=== PATIENT | female | born 1930 | race Caucasian/White ===

== ENCOUNTER 2016-09-13 08:01 | Inpatient (IN) | payer OTHER, MEDICARE ==
[~2016-09-13] VITALS: Ht 162.6 cm; Wt 78.0 kg
[~2016-09-13 08:01] MED LIST: ALTACE10 M1 PO; AMLODIPINE BES2.5 MG PO; DRISDOL50000 IU PO; FUROSEMIDE20 MG PO; LASIX20 MG PO; METOPROLOL SUC200 MG PO
[2016-09-13 08:55] LABS: ABSOLUTE BASOPHIL COUNT 0 /CUMM (0.0-0.2); ABSOLUTE EOSINOPHIL COUNT 0.1 /CUMM (0.0-0.7); ABSOLUTE GRANULOCYTE CT 5.6 /CUMM (1.4-6.5); ABSOLUTE LYMPH COUNT 0.8 /CUMM (1.2-3.4); ABSOLUTE MONOCYTE COUNT 0.7 /CUMM (0.10-0.60); BASOPHIL % 0.5 % (0.0-2.0); EOSINOPHIL % 0.8 % (0-5); HEMATOCRIT 36.4 % (37-47); MEAN CORPUSCULAR HGB 30.2 PG (27.0-31.0); MEAN CORPUSCULAR HGB CONC 33.9 G/DL (33.0-37.0); MEAN PLATELET VOLUME 8.1 FL (7.4-10.4); PLATELET COUNT 279 /CUMM (130-400); RBC DISTRIBUTION WIDTH 15.3 % (11.5-14.5); RED BLOOD CELL CT 4.09 /CUMM (4.20-5.40); WHITE BLOOD CELL COUNT 7.2 /CUMM (4.8-10.8)
--- NOTE | 2016-09-13 09:01 | ED GI/GU/ABDOMINAL COMPLAINT ---
History of Present Illness General Chief Complaint: General Adult Stated Complaint: BRB IN STOOL, ON COUMADIN Source: patient, old records, EMS Exam Limitations: dementia Vital Signs & Intake/Output Vital Signs & Intake/Output Vital Signs Date Time Temp Pulse Resp B/P B/P Pulse O2 O2 Flow FiO2 Mean Ox Delivery Rate 09/13 1353 Room Air Room Air / 1349 97.6 64 18 122/71 100 05/06 1328 106/58 05/06 1301 66 18 142/62 100 05/06 1229 97.5 66 15 114/68 97 Room Air Room Air 05/ 1136 60 15 128/60 97 Room Air Room Air 05/ 1046 52 15 119/58 100 Room Air Room Air 05/06 1016 97.1 53 15 114/53 100 Room Air Room Air / 0957 52 15 118/56 100 Room Air Room Air /06 0934 Room Air Room Air / 0855 65 15 98/52 98 Room Air Room Air /06 0831 97.1 67 15 110/71 98 Room Air Room Air Allergies Coded Allergies: No Known Allergies (09/13/16) Reconcile Medications Amlodipine Besylate 2.5 MG TABLET 1 TAB PO DAILY BP (Reported) Aspirin (Children's Aspirin) 81 MG TAB 1 TAB PO DAILY heart (Reported) ERGOCALCIFEROL (VITAMIN D2) (Drisdol) 50,000 IU SGL 50,000 IU PO QMON VIT D SUPPLEMENT Furosemide 20 MG TABLET 2 TAB PO QAM water pill (Reported) Metoprolol Succinate 200 MG TAB.ER.24H 1 TAB PO DAILY BP (Reported) Ramipril (Altace) 10 MG CAPSULE 1 CAP PO BID BP (Reported) Warfarin Sodium (Coumadin) 3 MG TABLET 1 TAB PO DAILY BLOOD THINNER (Reported ) START FROM 04/19/15 Triage Note: PT BIBA FROM [facility] FOR BRIGHT RED BLOOD IN STOOL. PT REPORTS SMALL AMOUNT OF BLOOD IN STOOL YESTERDAY AND PER EMS, MODERATE AMOUNT OF BRB IN TOILET ON ARRIVAL WITH CLOTS NOTED. PT DENIES ABD PAIN, NAUSEA, VOMITING, SOB, DIZZINESS. APPEARS TO BE IN NO DISTRESS. VSS. +BRB IN BEDPAN ON ARRIVAL WITH SMALL CLOTS AND BLOOD NOTED AROUND RECTUM. Triage Nurses Notes Reviewed? yes LMP (ages 10-50): post menopausal ? n Is pt currently ? No Onset: yesterday Duration: day(s):, continues in ED Timing: recent history Quality/Severity: painless bleeding Location: rectal Radiation: no radiation Activities at Onset: none Prior Abdominal Problems: none Past Sexual History: Unobtainable at this time No Modifying Factors: none HPI: 1 day prior to admission patient passed blood in her diaper. Prior to admission she had increased bleeding in her diaper. She denies fever chills nausea vomiting diarrhea abdominal pain chest pain shortness of breath headache dysuria rash. Past History Travel History Traveled to [place] past 21 day No Medical History Any Pertinent Medical History? 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 No Review of Systems Review of Systems Constitutional: Reports: no symptoms. EENTM: Reports: no symptoms. Respiratory: Reports: no symptoms. Cardiovascular: Reports: no symptoms. GI: Reports: see HPI, bloody stool, changes in stool. Genitourinary: Reports: no symptoms. Musculoskeletal: Reports: no symptoms. Skin: Reports: no symptoms. Neurological/Psychological: Reports: no symptoms. Hematologic/Endocrine: Reports: no symptoms. Immunologic/Allergic: Reports: no symptoms. All Other Systems: Reviewed and Negative Physical Exam Physical Exam General Appearance: well developed/nourished, alert, awake, comfortable, obese Head: atraumatic, normal appearance Eyes: Bilateral: normal appearance, PERRL, EOMI. Ears, Nose, Throat, Mouth: hearing grossly normal, moist mucous membrane Neck: normal inspection, supple, full range of motion, normal alignment Respiratory: normal breath sounds, chest non-tender, no respiratory distress, quiet respiration, lungs clear Cardiovascular: normal peripheral pulses, irregularly irregular, norml femoral pulses equa Peripheral Pulses: 4+ carotid (R), 4+ carotid (L) Gastrointestinal: normal bowel sounds, soft, non-tender, no organomegaly Rectal: bloody stool Back: normal inspection, normal range of motion Extremities: normal range of motion, no ligament instability Neurologic/Psych: no motor/sensory deficits, awake, alert, normal 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 No Severe Sepsis Present: No Septic Shock Present: No Progress Differential Diagnosis: gastritis, GI bleeding Plan of Care: Orders Procedure Date/time Status BASIC ELECTROLYTES PLUS BUN&CR 09/14 0600 Active PROTHROMBIN TIME 09/14 0400 Active CBC WITHOUT DIFFERENTIAL 09/14 0400 Active Full Liquid Diet 09/13 L Complete Nothing by Mouth 09/13 D Active CBC WITHOUT DIFFERENTIAL 09/13 2200 Active CBC WITHOUT DIFFERENTIAL 09/13 1400 Active PT Evaluate & Treat 09/13 1217 Active Pathway - chart 09/13 1217 Active Patient Data 09/13 1152 Active Admit to inpatient 09/13 1141 Active Santos, Insertion/Removal/Asses 09/13 0943 Active CULTURE,URINE 09/13 0943 Active Intake & Output 09/13 0936 Active PROTHROMBIN TIME 09/13 0830 Complete MAGNESIUM 09/13 0830 Complete COMPREHENSIVE METABOLIC PANEL 09/13 0830 Complete CBC WITHOUT DIFFERENTIAL 09/13 0830 Complete EKG 09/13 0830 Active TYPE & SCREEN (NOT X-MATCH) 09/13 0830 Complete VTE Mechanical Prophylaxis 09/13 UNK Active Current Medications Sig/Chuy Start time Last Medication Dose Stop Time Status Admin Furosemide 40 MG QAM 09/14 1000 UNVr (Lasix) Lisinopril 10 MG DAILY 09/14 1000 UNVr (Prinivil) Metoprolol Succinate 200 MG DAILY 09/14 1000 UNVr (Toprol Xl) Sodium Chloride 1,000 ML Q13H 09/13 1400 UNVr 09/13 (Normal Saline 0.9%) 1408 Laboratory Tests 09/13/16 1351: CBC w Diff Pending, WBC Pending, RBC Pending, Hgb Pending, Hct Pending, MCV Pending, MCH Pending, RDW Pending, Plt Count Pending, MPV Pending, PUBS MCHC Pending 09/13/16 0835: Anion Gap 12, Estimated GFR 59 L, BUN/Creatinine Ratio 35.6 H, Glucose 108 H, Calcium 8.9, Magnesium 2.0, Total Bilirubin 0.6, AST 20, ALT 32, Alkaline Phosphatase 72, Total Protein 6.6, Albumin 3.7, Globulin 2.9, Albumin/Globulin Ratio 1.3, PT 22.9 H, INR 2.20 H, CBC w Diff NO MAN DIFF REQ, RBC 4.09 L, MCV 89.0, MCH 30.2, RDW 15.3 H, MPV 8.1, Gran % 78.0 H, Lymphocytes % 11.2 L, Monocytes % 9.5 H, Eosinophils % 0.8, Basophils % 0.5, Absolute Granulocytes 5.6, Absolute Lymphocytes 0.8 L, Absolute Monocytes 0.7 H, Absolute Eosinophils 0.1, Absolute Basophils 0, PUBS MCHC 33.9 Microbiology 09/13 1000 URINE ROUT: Urine Culture - RECD Initial ED EKG: AFIB, no ST T wave changes Prior EKG: unchanged Rhythm Strip: atrial fibrillation Comments: Discussed with GI ICU for possible colonoscopy Departure Departure Disposition: STILL A PATIENT Condition: Stable Clinical Impression Primary Impression: Lower GI bleeding Secondary Impressions: Atrial fibrillation with controlled ventricular response Referrals: ALAN RITCHIE,JUDIE Escalante (PCP/Family) Departure Forms: Customer Survey General Discharge Information Admission Note Spoke With: LUCIEN PICKERING MD Documentation of Exam: Documentation of any treatments & extenuating circumstances including Concerns Regarding Discharge (functional status, medication knowledge or non-compliance, living conditions, etc.) that warrant an admission rather than observation: ICU monitoring serial lab exam GI evaluation medication adjustment continuing care discharge planning
[2016-09-13 09:07] LABS: PT 22.9 SEC (9.4-12.5)
--- NOTE | 2016-09-13 10:04 | RADIOLOGY REPORT ---
EXAMINATION: XR PORTABLE CHEST CLINICAL INFORMATION: Gastrointestinal bleed. COMPARISON: CT chest and chest x-ray of 04/15/2015 TECHNIQUE: Portable frontal view of the chest was obtained. FINDINGS: The cardiomediastinal silhouette is stable with mild cardiomegaly and mildly ectatic aorta with scattered aortic wall calcifications. The lungs are mildly hypoexpanded. No focal consolidation, changes of congestion or pleural effusions. No pneumothorax. Mild degenerative changes are noted at the right acromioclavicular joint. IMPRESSION: No acute pulmonary process. No significant interval change is noted compared to previous study.
--- NOTE | 2016-09-13 11:30 | Cons- Gastroenterology ---
General Information and HPI Consulting Request Date of Consult: 09/13/16 Requested By: Fransisca Medina MD Reason for Consult: Bright red blood per rectum. Change in bowel habits. Source of Information: patient Exam Limitations: no limitations History of Present Illness: Ms. Coleman is a 86-year-old female with a history of colon cancer s/p left sided hemicolectomy many years ago on Coumadin for atrial fibrillation who presented to [facility] early this morning with complaints of bright blood per rectum. The patient notes that last night she passed a scant amount of bright red blood which she did not pay much attention to and then this morning when she woke she had a bowel movement where she passed a large amount of blood with clots. She denies any black tarry stool. The bleeding was not associated with any abdominal pain and she is also without any complaints of abdominal pain with eating, nausea, vomiting, heartburn, dysphagia or hematemesis. The patient does not recall having similar episodes like this in the past, however her daughter notes that this episode seems to be similar to one 4 years ago when she had rectal bleeding and a colonoscopy was performed at that time which showed diverticulosis but no evidence of colon cancer recurrence and there was also no active bleeding by the time the colonoscopy was performed. Since arrival to the emergency room the patient has been hemodynamically stable and she has not had any further rectal bleeding. She denies any chest pain, shortness of breath, or lightheadedness. Allergies/Medications Allergies: Coded Allergies: No Known Allergies (09/13/16) Home Med List: Amlodipine Besylate 2.5 MG TABLET 1 TAB PO DAILY BP (Reported) Aspirin (Children's Aspirin) 81 MG TAB.CHEW 81 MG PO DAILY Atrial fibrillation (Reported) Please do not take until 09/24/16 Resume when no further GI bleed ERGOCALCIFEROL (VITAMIN D2) (Drisdol) 50,000 IU SGL 50,000 IU PO QMON VIT D SUPPLEMENT Furosemide 20 MG TABLET 2 TAB PO QAM water pill (Reported) Metoprolol Succinate 200 MG TAB.ER.24H 1 TAB PO DAILY BP (Reported) Omeprazole 20 MG CAPSULE.DR 40 MG PO DAILY AC GI bleed Ramipril (Altace) 10 MG CAPSULE 1 CAP PO BID BP (Reported) Current Medications: Current Medications Sig/Chuy Start time Last Medication Dose Route Stop Time Status Admin Sodium Chloride 500 ML BOLUS ONE 09/13 1015 DC 05/06 IV 05/06 1114 1005 Sodium Chloride 1,000 ML BOLUS ONE 09/13 0945 DC 05/06 IV 05/ 1044 1000 Past History Travel History Traveled to [place] past 21 day No Medical History Neurological: CVA EENT: NONE Cardiovascular: IRREGULAR HEART RATE Respiratory: NONE Gastrointestinal: NONE Hepatic: NONE Renal: NONE Musculoskeletal: NONE Psychiatric: NONE Endocrine: NONE Blood Disorders: NONE Cancer(s): colon/rectal cancer, non-hodgkin lymphoma 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 Needs Assist: toileting, bathing. Ambulation: cane IADLs Needs Assist: shopping, housework, finances. Review of Systems Review of Systems Constitutional: Denies: diaphoresis, fever, malaise, weakness. EENTM: Denies: no symptoms. Cardiovascular: Denies: no symptoms. Respiratory: Denies: no symptoms. GI: Reports: see HPI. Genitourinary: Denies: no symptoms. Musculoskeletal: Denies: no symptoms. Skin: Denies: no symptoms. Neurological/Psychological: Denies: no symptoms. Hematologic/Endocrine: Reports: bleeding. Immunologic/Allergic: Denies: no symptoms. All Other Systems: Reviewed and Negative Exam & Diagnostic Data Vital Signs and I&O Vital Signs Date Time Temp Pulse Resp B/P B/P Pulse O2 O2 Flow FiO2 Mean Ox Delivery Rate 09/13 1046 52 15 119/58 100 Room Air Room Air 09/13 1016 97.1 53 15 114/53 100 Room Air Room Air 09/13 0957 52 15 118/56 100 Room Air Room Air 09/13 0934 Room Air Room Air 09/13 0855 65 15 98/52 98 Room Air Room Air 09/13 0831 97.1 67 15 110/71 98 Room Air Room Air Intake & Output 09/13 0400 09/12 0400 09/11 1600 09/11 0400 Intake Total 0 Output Total Balance 0 Intake, Oral 0 Patient 170 lb Weight Weight Reported by Patient Measurement Method Physical Exam General Appearance: well developed/nourished, no apparent distress, alert, awake , comfortable Head: atraumatic, normal appearance Eyes: Bilateral: normal appearance. Ears, Nose, Throat: normal pharynx, normal ENT inspection Neck: normal inspection, supple, full range of motion Respiratory: normal breath sounds, chest non-tender Cardiovascular: irregularly irregular Gastrointestinal: normal bowel sounds, soft, non-tender, no organomegaly Rectal: deferred Back: normal inspection, normal range of motion Extremities: normal inspection, normal capillary refill, normal range of motion, no edema Neurologic/Psych: no motor/sensory deficits, awake, alert, oriented x 3 Skin: intact, normal color, warm/dry Results Pertinent Lab Results: Laboratory Tests 09/13 0835 Chemistry Sodium (137 - 145 mmol/L) 140 Potassium (3.5 - 5.1 mmol/L) 4.8 Chloride (98 - 107 mmol/L) 100 Carbon Dioxide (22 - 30 mmol/L) 28 Anion Gap (5 - 16) 12 BUN (7 - 17 mg/dL) 32 H Creatinine (0.5 - 1.0 mg/dL) 0.9 Estimated GFR (>60 ml/min) 59 L BUN/Creatinine Ratio (7 - 25 %) 35.6 H Glucose (65 - 99 mg/dL) 108 H Calcium (8.4 - 10.2 mg/dL) 8.9 Magnesium (1.6 - 2.3 mg/dL) 2.0 Total Bilirubin (0.2 - 1.3 mg/dL) 0.6 AST (14 - 36 U/L) 20 ALT (9 - 52 U/L) 32 Alkaline Phosphatase (<127 U/L) 72 Total Protein (6.3 - 8.2 g/dL) 6.6 Albumin (3.5 - 5.0 g/dL) 3.7 Globulin (1.9 - 4.2 gm/dL) 2.9 Albumin/Globulin Ratio (1.1 - 2.2 %) 1.3 Coagulation PT (9.4 - 12.5 SEC) 22.9 H INR (0.90 - 1.19) 2.20 H Hematology CBC w Diff NO MAN DIFF REQ WBC (4.8 - 10.8 /CUMM) 7.2 RBC (4.20 - 5.40 /CUMM) 4.09 L Hgb (12.0 - 16.0 G/DL) 12.3 Hct (37 - 47 %) 36.4 L MCV (81.0 - 99.0 FL) 89.0 MCH (27.0 - 31.0 PG) 30.2 RDW (11.5 - 14.5 %) 15.3 H Plt Count (130 - 400 /CUMM) 279 MPV (7.4 - 10.4 FL) 8.1 Gran % (42.2 - 75.2 %) 78.0 H Lymphocytes % (20.5 - 51.1 %) 11.2 L Monocytes % (1.7 - 9.3 %) 9.5 H Eosinophils % (0 - 5 %) 0.8 Basophils % (0.0 - 2.0 %) 0.5 Absolute Granulocytes (1.4 - 6.5 /CUMM) 5.6 Absolute Lymphocytes (1.2 - 3.4 /CUMM) 0.8 L Absolute Monocytes (0.10 - 0.60 /CUMM) 0.7 H Absolute Eosinophils (0.0 - 0.7 /CUMM) 0.1 Absolute Basophils (0.0 - 0.2 /CUMM) 0 PUBS MCHC (33.0 - 37.0 G/DL) 33.9 Assessment/Plan Assessment/Recommendations: Assessment: Ms. Coleman is an 86 year old female with a remote history of colon cancer and diverticulosis on coumadin for atrial fibrillation who presents with painless rectal bleeding which is quite likely secondary to a diverticular bleed and exacerbated by her anticoagulation. She had a similar admission in 2013 at which point she underwent a colonoscopy that was negative for a recurrence of her colon cancer, but did show diverticulosis. Her bleeding resolved with temporarily holding her coumadin then and I am hopeful that will be the case here and a repeat colonoscopy can be avoided. She is currently hemodynamically stable, has not had a significant fall in her hgb and hasn't had any further rectal bleeding since she has arrived to the ER so a repeat colonoscopy, if it does need to be performed, isn't urgent. Hopefully her bleeding will stop with holding her coumadin and/or reversing her INR and a repeat colonoscopy won't be necessary, but in case it is would recommend admitting her to the ICU over the weekend. Recommendations: 1. Admit to the ICU for close monitoring and in case endoscopic intervention is necessary over the weekend. 2. Follow CBC q8hr and transfuse as needed to keep hgb > 8 3. Hold coumadin for now 4. Follow INR and if bleeding persists would reverse her INR with vit k and FFP , but this isn't necessary if the bleeding doesn't recur 5. Maintain 2 large bore IVs at all times 6. Notify GI for hemodynamically significant bleeding and if her bleeding continues in spite of holding the coumadin and reversing her INR will then plan to prep for a colonoscopy. 7. Keep on full liquid diet for now with nothing red. I will continue to follow this patient and make further recommendations based on her clinical course and repeat blood work. Problem List: 1. AFIB ON COUMADIN 2. GI bleed Copies To: ALAN RITCHIE,JUDIE Escalante Consult Acknowledgment - Thank you for your consult request.
--- NOTE | 2016-09-13 11:58 | History & Physical ---
PRITI OWEN 09/13/16 1158: General Information and HPI MD Statement: I have seen and personally examined BARBARA PAIGE and documented this H&P. The patient is a 86 year old F who presented with a patient stated chief complaint of [bright red blood per rectum ]. Source of Information: patient Exam Limitations: no limitations History of Present Illness: Patient is 85-year-old female with past medical history of colonic cancer, lymphoma treated with chemotherapy and radiation, TIA, hypertension, known case of atrial fibrillation on Coumadin and was brought in to [facility] by EMS from [facility] after patient had an episode of bright red blood per rectum yesterday and this morning. Patient said that this morning, her stools were very bloody. Patient has history of colon cancer that was treated 30 years ago and she never had any similar complain since then. Patient denies any belly pain, nausa or vomiting. Her apetitie has been good. Patients daughter notes that this episode seems to be similar to one 4 years ago when she had rectal bleeding and a colonoscopy was performed that time which showed diverticulosis but no evidence of colon cancer recurrence. ROS is negative for any chest pain, difficulty breathing, dizziness, lightheadedness, urinary complains etc. Patient says her daughter Dara Paige ([phone]) helps her with her decision making regarding important matters. Allergies/Medications Allergies: Coded Allergies: No Known Allergies (09/13/16) Compliance With Home Meds: GOOD Past History Travel History Traveled to [place] past 21 day No Medical History Neurological: CVA EENT: NONE Cardiovascular: IRREGULAR HEART RATE Respiratory: NONE Gastrointestinal: NONE Hepatic: NONE Renal: NONE Musculoskeletal: NONE Psychiatric: NONE Endocrine: NONE Blood Disorders: NONE Cancer(s): colon/rectal cancer, non-hodgkin lymphoma CAMPAIGN MANAGEMENT SPECIALIST/Reproductive: NONE History of MRSA: No History of VRE: No History of CDIFF: No Surgical History Surgical History: cholecystectomy, hernia repair-inguinal, hysterectomy, colon surgery Past Family/Social History Psychosocial History Where do you live? Assisted Living Services at Home: None Functional Ability ADLs Independent: dressing, eating. Needs Assist: toileting, bathing. Ambulation: cane IADLs Needs Assist: shopping, housework, finances. Sexual History Past Sexual History Unobtainable at this time Review of Systems Review of Systems Constitutional: Reports: see HPI. Cardiovascular: Reports: no symptoms. Respiratory: Reports: no symptoms. GI: Reports: no symptoms. Genitourinary: Reports: no symptoms. Musculoskeletal: Reports: no symptoms. Skin: Reports: no symptoms. Exam & Diagnostic Data Last 24 Hrs of Vital Signs/I&O Vital Signs Date Time Temp Pulse Resp B/P B/P Pulse O2 O2 Flow FiO2 Mean Ox Delivery Rate 09/13 1136 60 15 128/60 97 Room Air Room Air 09/13 1046 52 15 119/58 100 Room Air Room Air 09/13 1016 97.1 53 15 114/53 100 Room Air Room Air 09/13 0957 52 15 118/56 100 Room Air Room Air 09/13 0934 Room Air Room Air 09/13 0855 65 15 98/52 98 Room Air Room Air 09/13 0831 97.1 67 15 110/71 98 Room Air Room Air Intake & Output 09/13 1600 09/13 0800 05/ 0000 Intake Total 0 Output Total Balance 0 Intake, Oral 0 Patient 77.111 kg Weight Weight Reported by Patient Measurement Method Physical Exam General Appearance Alert, Oriented X3, Cooperative, No Acute Distress Skin No Rashes, No Breakdown Skin Temp/Moisture Exam: Warm/Dry Sepsis Skin Exam (color): Normal for Ethnicity HEENT Atraumatic Neck Supple Cardiovascular Regular Rate, Normal S1, Normal S2 Lungs Clear to Auscultation, Normal Air Movement Abdomen Normal Bowel Sounds, Soft, No Tenderness Neurological Normal Tone Extremities No Edema Last 24 Hrs of Labs/Zev: Laboratory Tests 09/13/16 0835: Anion Gap 12, Estimated GFR 59 L, BUN/Creatinine Ratio 35.6 H, Glucose 108 H, Calcium 8.9, Magnesium 2.0, Total Bilirubin 0.6, AST 20, ALT 32, Alkaline Phosphatase 72, Total Protein 6.6, Albumin 3.7, Globulin 2.9, Albumin/Globulin Ratio 1.3, PT 22.9 H, INR 2.20 H, CBC w Diff NO MAN DIFF REQ, RBC 4.09 L, MCV 89.0, MCH 30.2, RDW 15.3 H, MPV 8.1, Gran % 78.0 H, Lymphocytes % 11.2 L, Monocytes % 9.5 H, Eosinophils % 0.8, Basophils % 0.5, Absolute Granulocytes 5.6, Absolute Lymphocytes 0.8 L, Absolute Monocytes 0.7 H, Absolute Eosinophils 0.1, Absolute Basophils 0, PUBS MCHC 33.9 Microbiology 09/13 1000 URINE ROUT: Urine Culture - RECD Assessment/Plan Assessment: Patient is 85-year-old female with past medical history of colonic cancer, lymphoma treated with chemotherapy and radiation, TIA, hypertension, known case of atrial fibrillation on Coumadin and was brought in to [facility] by EMS from [facility] after patient had an episode of bright red blood per rectum yesterday and this morning. Patient said that this morning, her stools were very bloody. Patient has history of colon cancer that was treated 30 years ago and she never had any similar complain since then. Patient denies any belly pain, nausa or vomiting. Her apetitie has been good. Labs and Vitals as above EKG: atrial fibrillation with 66 HR, QTC 453, no ST changes CXR: No acute pulmonary process. No significant interval change is noted compared to previous study. Assessment and Plan Patient has 2 episodes of lower GI bleed, her Hemogolbin is stable. Will monitor her in ICU with CBC q8 to monitor for acute drop in hemoglobin and transfuse if necessary to keep HB > 8. GI consult service Dr. Quintana on board. Patient might need urgent endoscopic intervention if she continues to bleed. Will hold warfarin and monitor INR daily. ALPS for DVT ppx no anticoagulation as patient is bleeding. Patient is full code. Core Measures/Miscellaneous Acute Coronary Syndrome ACS Diagnosis: No Cerebrovascular Accident CVA/TIA Diagnosis: No Congestive Heart Failure CHF Diagnosis: No Venous Thromboembolism VTE Risk Factors: Age > 40 [facility] prophylaxis d/t: No contraindications No VTE Pharm Prophylaxis d/t: No contraindications VTE Diagnosis: No VTE Type: NONE VTE Confirmed by (Test): NONE Severe Sepsis Severe Sepsis Present: No Septic Shock Septic Shock Present: No Miscellaneous Documentation Attending Case Discussed With: Trae Primary Care Physician: JUDIE PHILLIPS MD Patient sees these Specialists luis Level of Patient Care: Critical Care (CRI) LUCIEN PICKERING MD 09/13/16 2014: General Information and HPI Allergies/Medications Home Med list Amlodipine Besylate 2.5 MG TABLET 1 TAB PO DAILY BP (Reported) Aspirin (Children's Aspirin) 81 MG TAB.CHEW 81 MG PO DAILY Atrial fibrillation (Reported) Please do not take until 09/24/16 Resume when no further GI bleed ERGOCALCIFEROL (VITAMIN D2) (Drisdol) 50,000 IU SGL 50,000 IU PO QMON VIT D SUPPLEMENT Furosemide 20 MG TABLET 2 TAB PO QAM water pill (Reported) Metoprolol Succinate 200 MG TAB.ER.24H 1 TAB PO DAILY BP (Reported) Omeprazole 20 MG CAPSULE.DR 40 MG PO DAILY AC GI bleed Ramipril (Altace) 10 MG CAPSULE 1 CAP PO BID BP (Reported) Assessment/Plan As Ranked By This Provider Problem List: 1. Lower GI bleeding 2. Atrial fibrillation with controlled ventricular response Attending MD Review Statement Attending Statement Attending MD Statement: examined this patient, discuss w/resident/PA/POND SCALER, agreed w/resident/PA/POND SCALER, reviewed EMR data (avail) Attending Assessment/Plan: 86F PMH colon cancer 30 years ago, lymphoma treated with chemotherapy and radiation, TIA, hypertension, paroxysmal atrial fibrillation on Coumadin brought from care home facility with bright red blood per rectum with clots. Normal BM until today. Denies abdominal pain, diarrhea, constipation, rectal pain, or symptoms of anemia. Hgb 12 on admission, 10.7 on repeat. Hemodynamically stable, exam benign. 1. Lower GI bleed 2. Acute blood loss anemia 3. History of colon cancer 4. Paroxysmal atrial fibrillation Plan - Admit to ICU - Monitor CBC q8h - Transfuse Hgb<8 - GI consult - Protonix 40mg IV daily - Continue Coumadin for now, if continues to bleed, then will reverse with FFP - Continue home medications - NPO for possible GI procedure
[2016-09-13 14:12] LABS: ABSOLUTE BASOPHIL COUNT 0 /CUMM (0.0-0.2); ABSOLUTE EOSINOPHIL COUNT 0.1 /CUMM (0.0-0.7); ABSOLUTE GRANULOCYTE CT 6.3 /CUMM (1.4-6.5); ABSOLUTE LYMPH COUNT 1.3 /CUMM (1.2-3.4); ABSOLUTE MONOCYTE COUNT 0.8 /CUMM (0.10-0.60); BASOPHIL % 0.4 % (0.0-2.0); EOSINOPHIL % 1.1 % (0-5); GRANULOCYTE % 73.2 % (42.2-75.2); HEMATOCRIT 32.3 % (37-47); MEAN CORPUSCULAR HGB 29.5 PG (27.0-31.0); MEAN CORPUSCULAR VOLUME 89.4 FL (81.0-99.0); MEAN PLATELET VOLUME 8.1 FL (7.4-10.4); PLATELET COUNT 277 /CUMM (130-400); RBC DISTRIBUTION WIDTH 15.4 % (11.5-14.5); RED BLOOD CELL CT 3.62 /CUMM (4.20-5.40); WHITE BLOOD CELL COUNT 8.6 /CUMM (4.8-10.8)
[2016-09-13 16:06] VITALS: BP 118/64
--- NOTE | 2016-09-13 20:20 | Admission Certification ---
Admission Certification Certification Statement - As attending physician, I certify that at the time of - admission, based on clinical presentation, severity of - symptoms, need for further diagnostic testing and - therapeutic interventions, and risk of adverse outcomes - without in-hospital treatment, in my clinical assessment, - this patient requires an acute hospital stay for a minimum - of two nights or longer. I have also considered psychsocial - factors such as support system, advanced age, financial - issues, cognitive issues, and failed out-patient treatments, - past re-admission history, safety of patient, and lack of - compliance as applicable. Specific rationale supporting this admission is: Acute lower GI bleed with acute blood loss anemia
[2016-09-13 23:14] LABS: ABSOLUTE BASOPHIL COUNT 0 /CUMM (0.0-0.2); ABSOLUTE EOSINOPHIL COUNT 0.1 /CUMM (0.0-0.7); ABSOLUTE GRANULOCYTE CT 5.4 /CUMM (1.4-6.5); ABSOLUTE LYMPH COUNT 1.2 /CUMM (1.2-3.4); ABSOLUTE MONOCYTE COUNT 0.7 /CUMM (0.10-0.60); BASOPHIL % 0.6 % (0.0-2.0); EOSINOPHIL % 1.9 % (0-5); GRANULOCYTE % 71.6 % (42.2-75.2); HEMATOCRIT 27.9 % (37-47); MEAN CORPUSCULAR HGB 29.4 PG (27.0-31.0); MEAN CORPUSCULAR VOLUME 88.9 FL (81.0-99.0); MEAN PLATELET VOLUME 7.6 FL (7.4-10.4); PLATELET COUNT 231 /CUMM (130-400); RBC DISTRIBUTION WIDTH 15.5 % (11.5-14.5); RED BLOOD CELL CT 3.14 /CUMM (4.20-5.40); WHITE BLOOD CELL COUNT 7.5 /CUMM (4.8-10.8)
[2016-09-13 23:20] LABS: PT 25.3 SEC (9.4-12.5)
[2016-09-14] VITALS: BP 95/86
[2016-09-14 06:41] LABS: ABSOLUTE BASOPHIL COUNT 0 /CUMM (0.0-0.2); ABSOLUTE EOSINOPHIL COUNT 0.1 /CUMM (0.0-0.7); ABSOLUTE LYMPH COUNT 0.9 /CUMM (1.2-3.4); ABSOLUTE MONOCYTE COUNT 0.6 /CUMM (0.10-0.60); BASOPHIL % 0.4 % (0.0-2.0); EOSINOPHIL % 1.1 % (0-5); GRANULOCYTE % 75.8 % (42.2-75.2); HEMATOCRIT 27.2 % (37-47); MEAN CORPUSCULAR HGB 29.8 PG (27.0-31.0); MEAN CORPUSCULAR HGB CONC 33.5 G/DL (33.0-37.0); MEAN CORPUSCULAR VOLUME 88.8 FL (81.0-99.0); MEAN PLATELET VOLUME 8.2 FL (7.4-10.4); PLATELET COUNT 212 /CUMM (130-400); RBC DISTRIBUTION WIDTH 15.1 % (11.5-14.5); RED BLOOD CELL CT 3.07 /CUMM (4.20-5.40); WHITE BLOOD CELL COUNT 6.6 /CUMM (4.8-10.8)
[2016-09-14 06:47] LABS: PT 23.6 SEC (9.4-12.5)
[2016-09-14 08:00] VITALS: BP 112/60
--- NOTE | 2016-09-14 08:35 | PN- Resident CRCU ---
ORALIA RITCHIE,[facility] 09/14/16 0835: Subjective HPI/CRCU Issues: Mrs. Coleman was seen and examined this morning. She is resting comfortably in bed. She is alert however oriented to only time and place. Patient denies any complaints. She is currently pain-free. She denies any fever, nausea, vomiting , chills. She is currently nothing by mouth. 24 Hour Events: Warfarin Was held. No other issues reported overnight. Objective Vital Signs & I&O Last 8 Hrs of Vitals and I&O: Intake & Output 09/14 1600 Intake Total 689 Output Total 1225 Balance -536 Intake, IV 609 Intake, Oral 80 Number 1 Bowel Movements Output, Urine 1225 Patient 80.456 kg Weight Weight Bed scale Measurement Method Exam General Appearance: well developed/nourished, no apparent distress, alert, awake Head: atraumatic Ears, Nose, Throat: normal pharynx, normal ENT inspection Neck: normal inspection Respiratory: normal breath sounds Cardiovascular: regular rate/rhythm, irregularly irregular Gastrointestinal: normal bowel sounds, soft, non-tender Extremities: normal inspection, normal capillary refill, normal range of motion Current Medications: Current Medications Sig/Chuy Start time Last Medication Dose Route Stop Time Status Admin Furosemide 40 MG QAM 09/14 1000 AC 09/14 PO 1001 Lisinopril 10 MG DAILY 09/14 1000 AC 09/14 PO 1001 Metoprolol Succinate 200 MG DAILY 09/14 1000 AC 05/ PO 1000 Pantoprazole Sodium 40 MG DAILY 09/14 1000 AC / IV 1000 Phytonadione 5 MG ONCE ONE 09/14 0715 DC 09/14 PO 09/14 0716 0845 Sodium Chloride 1,000 ML Q13H 09/13 1400 AC 09/14 IV 1653 Warfarin Sodium 3 MG DAILY 09/14 1650 DC PO Impression/Plan Impression/Problem List Impression: Ms. Schneider is an 85-year-old female with past medical history of was brought in from [facility] after the patient had two episodes of painless bright red blood per rectum. She was admitted to the intensive care unit, overnight the patient had two maroon colored bowel movements. #Acute GI bleed Likely secondary to diverticular bleed further exacerbated by chronic antecolic position on Coumadin. H&H 9.9/29.9. Repeat CBC every 8 hours. Goal hemoglobin above 8. 2 large bore IVs at all times. If patient deteriorates clinically over the course of the evening consider stat modification of GI who will consider scoping the patient sooner. Reverse INR with additional vitamin K and FFP considering the continued bleeding. Protonix 40 mg IV #Atrial fibrillation on Coumadin Patient's INR: 2.27 Currently hold Coumadin as per GI recommendations. Consider starting in a.m. once patient is more stable. Check INR in a.m. Diet Full liquid for now Code: FC Problem List: 1. AFIB ON COUMADIN 2. Acute kidney injury 3. Atrial fibrillation with controlled ventricular response 4. Altered mental status Pain Ratin Pain Location: No Pain Reported Tomorrow's Labs & Rationales: CBC ICU Bundle Plan DVT/Prophylaxis: mechanical LUCIEN PICKERING MD 09/14/16 1356: Attending MD Review Statement Attending Sign Off Attending Cosign Statement: I have: examined this patient, reviewed avalbl EMR data, discussd w/resident/PA/ COMPLIANCE TECHNICIAN, discussed mgmt plan w/pt, agreed w/resident/PA/COMPLIANCE TECHNICIAN. Other Findings: 86F PMH colon cancer 30 years ago, lymphoma treated with chemotherapy and radiation, TIA, hypertension, paroxysmal atrial fibrillation on Coumadin brought from [facility] facility with bright red blood per rectum with clots. Normal BM until today. Denies abdominal pain, diarrhea, constipation, rectal pain, or symptoms of anemia. Hgb 12 on admission, 10.7 on repeat. Hemodynamically stable, exam benign. 1. Lower GI bleed 2. Acute blood loss anemia 3. History of colon cancer 4. Paroxysmal atrial fibrillation Plan - Admit to ICU - Monitor CBC q8h - Transfuse Hgb<8 - GI consult - Protonix 40mg IV daily - Continue Coumadin for now, if continues to bleed, then will reverse with FFP - Continue home medications - Clear liquid diet, NPO if rectal bleeding or Hgb drop
--- NOTE | 2016-09-14 12:25 | PN- Gastroenterology ---
Assessment/Plan Assessment/Recommendations: Assessment: Ms. Coleman is an 86 year old female with a history of colon cancer and diverticulosis on coumadin for atrial fibrillation who presents with painless rectal bleeding which is quite likely secondary to a diverticular bleed and exacerbated by her anticoagulation. She continues to have some bloody bowel movements and her hgb has fallen significantly since admission, but it has been stable over the past 12 hours and she continues to be hemodynamically stable. Her INR is still elevated at 2.27 so as she continues to bleed would recommend actively reversing that with FFP and additional vitamin K if necessary. If her bleeding persists in spite of reversing her INR will then proceed with a therpeutic colonoscopy, but will continue to attempt to try and hold off on this if possible. Recommendations: 1. Continue to observe in the ICU for close monitoring and in case endoscopic intervention is necessary over the weekend, but will continue to try and hold off on a colonoscopy for now. 2. Follow CBC q8hr and transfuse as needed to keep hgb > 8 3. Hold coumadin for now 4. Follow INR and would reverse INR with additional vitamin K and FFP considering the continued bleeding. 5. Maintain 2 large bore IVs at all times 6. Notify GI for hemodynamically significan bleeding and if her bleeding continues in spite of holding the coumadin and reversing her INR will then plan to prep for a colonoscopy. 7. Keep on full liquid diet for now with nothing red. I will continue to follow this patient and make further recommendations based on her clinical course and repeat blood work. Problem List: 1. GI bleed 2. AFIB ON COUMADIN 3. Anemia 4. Lower GI bleeding Subjective Subjective: Pt continues to pass marroon colored stool with her having about 2 further bloody bowel movements yesterday after arriving to the ICU and another this morning. She remains without any abdominal pain, nausea or vomiting. She has not received any blood products. She is without any lightheadedness, or SOB. She did get a dose of oral vitamin K this morning. Objective Vital Signs and I&Os Vital Signs Date Time Temp Pulse Resp B/P B/P Pulse O2 O2 Flow FiO2 Mean Ox Delivery Rate 09/14 1001 98.0 85 20 141/61 09/14 1000 98.0 85 20 141/61 09/14 0800 98 Room Air Room Air 09/14 08 98.0 73 19 112/60 98 Room Air Room Air 09/14 0400 97 Room Air 09/14 0000 96.8 70 14 95/86 98 Room Air 09/14 0000 98 Room Air 09/13 2000 95 Room Air 09/13 1606 99 Room Air 09/13 1606 96.6 62 15 118/64 99 Room Air / 1433 97.3 63 18 109/56 98 Room Air 09/13 1353 Room Air Room Air 09/13 1349 97.6 64 18 122/71 100 05/06 1328 106/58 05/ 1301 66 18 142/62 100 05/06 1229 97.5 66 15 114/68 97 Room Air Room Air Intake & Output 09/14 0400 09/13 1600 09/13 0400 09/12 1600 09/12 0400 Intake Total 505 577 0 Output Total 225 200 700 Balance 280 377 -700 Intake, IV 505 577 Intake, Oral 0 0 0 Number 0 1 Bowel Movements Output, Urine 225 200 700 Patient 177 lb 170 lb 170 lb Weight Weight Bed scale Reported by Patient Measurement Method Physical Exam General Appearance: well developed/nourished, no apparent distress, comfortable Head: atraumatic, normal appearance Neck: normal inspection, supple, full range of motion Respiratory: normal breath sounds, chest non-tender, no respiratory distress Cardiovascular: irregularly irregular Abdomen: normal bowel sounds, soft, non-tender Extremities: normal inspection, no edema Skin: intact, normal color Current Medications: Current Medications Sig/Chuy Start time Last Medication Dose Route Stop Time Status Admin Furosemide 40 MG QAM 09/14 1000 AC 09/14 PO 1001 Lisinopril 10 MG DAILY 09/14 1000 AC 09/14 PO 1001 Metoprolol Succinate 200 MG DAILY 09/14 1000 AC 09/14 PO 1000 Pantoprazole Sodium 40 MG DAILY 09/14 1000 AC 09/14 IV 1000 Phytonadione 5 MG ONCE ONE 09/14 0715 DC 09/14 PO 09/14 0716 0845 Sodium Chloride 1,000 ML Q13H 09/13 1400 AC 09/14 IV 0337 Results Pertinent Lab Results: Laboratory Tests 09/14 09/13 0545 2255 Chemistry Sodium (137 - 145 mmol/L) 137 Potassium (3.5 - 5.1 mmol/L) 4.1 Chloride (98 - 107 mmol/L) 104 Carbon Dioxide (22 - 30 mmol/L) 24 Anion Gap (5 - 16) 8 BUN (7 - 17 mg/dL) 26 H Creatinine (0.5 - 1.0 mg/dL) 0.9 Estimated GFR (>60 ml/min) 59 L BUN/Creatinine Ratio (7 - 25 %) 28.9 H Coagulation PT (9.4 - 12.5 SEC) 23.6 H 25.3 H INR (0.90 - 1.19) 2.27 H 2.43 H Hematology CBC w Diff NO MAN DIFF REQ NO MAN DIFF REQ WBC (4.8 - 10.8 /CUMM) 6.6 7.5 RBC (4.20 - 5.40 /CUMM) 3.07 L 3.14 L Hgb (12.0 - 16.0 G/DL) 9.1 L 9.2 L Hct (37 - 47 %) 27.2 L 27.9 L MCV (81.0 - 99.0 FL) 88.8 88.9 MCH (27.0 - 31.0 PG) 29.8 29.4 RDW (11.5 - 14.5 %) 15.1 H 15.5 H Plt Count (130 - 400 /CUMM) 212 231 MPV (7.4 - 10.4 FL) 8.2 7.6 Gran % (42.2 - 75.2 %) 75.8 H 71.6 Lymphocytes % (20.5 - 51.1 %) 13.7 L 16.1 L Monocytes % (1.7 - 9.3 %) 9.0 9.8 H Eosinophils % (0 - 5 %) 1.1 1.9 Basophils % (0.0 - 2.0 %) 0.4 0.6 Absolute Granulocytes (1.4 - 6.5 /CUMM) 5.0 5.4 Absolute Lymphocytes (1.2 - 3.4 /CUMM) 0.9 L 1.2 Absolute Monocytes (0.10 - 0.60 /CUMM) 0.6 0.7 H Absolute Eosinophils (0.0 - 0.7 /CUMM) 0.1 0.1 Absolute Basophils (0.0 - 0.2 /CUMM) 0 0 PUBS MCHC (33.0 - 37.0 G/DL) 33.5 33.0 05/06 05/06 1351 0835 Chemistry Sodium (137 - 145 mmol/L) 140 Potassium (3.5 - 5.1 mmol/L) 4.8 Chloride (98 - 107 mmol/L) 100 Carbon Dioxide (22 - 30 mmol/L) 28 Anion Gap (5 - 16) 12 BUN (7 - 17 mg/dL) 32 H Creatinine (0.5 - 1.0 mg/dL) 0.9 Estimated GFR (>60 ml/min) 59 L BUN/Creatinine Ratio (7 - 25 %) 35.6 H Glucose (65 - 99 mg/dL) 108 H Calcium (8.4 - 10.2 mg/dL) 8.9 Magnesium (1.6 - 2.3 mg/dL) 2.0 Total Bilirubin (0.2 - 1.3 mg/dL) 0.6 AST (14 - 36 U/L) 20 ALT (9 - 52 U/L) 32 Alkaline Phosphatase (<127 U/L) 72 Total Protein (6.3 - 8.2 g/dL) 6.6 Albumin (3.5 - 5.0 g/dL) 3.7 Globulin (1.9 - 4.2 gm/dL) 2.9 Albumin/Globulin Ratio (1.1 - 2.2 %) 1.3 Coagulation PT (9.4 - 12.5 SEC) 22.9 H INR (0.90 - 1.19) 2.20 H Hematology CBC w Diff NO MAN DIFF REQ NO MAN DIFF REQ WBC (4.8 - 10.8 /CUMM) 8.6 7.2 RBC (4.20 - 5.40 /CUMM) 3.62 L 4.09 L Hgb (12.0 - 16.0 G/DL) 10.7 L 12.3 Hct (37 - 47 %) 32.3 L 36.4 L MCV (81.0 - 99.0 FL) 89.4 89.0 MCH (27.0 - 31.0 PG) 29.5 30.2 RDW (11.5 - 14.5 %) 15.4 H 15.3 H Plt Count (130 - 400 /CUMM) 277 279 MPV (7.4 - 10.4 FL) 8.1 8.1 Gran % (42.2 - 75.2 %) 73.2 78.0 H Lymphocytes % (20.5 - 51.1 %) 15.5 L 11.2 L Monocytes % (1.7 - 9.3 %) 9.8 H 9.5 H Eosinophils % (0 - 5 %) 1.1 0.8 Basophils % (0.0 - 2.0 %) 0.4 0.5 Absolute Granulocytes (1.4 - 6.5 /CUMM) 6.3 5.6 Absolute Lymphocytes (1.2 - 3.4 /CUMM) 1.3 0.8 L Absolute Monocytes (0.10 - 0.60 /CUMM) 0.8 H 0.7 H Absolute Eosinophils (0.0 - 0.7 /CUMM) 0.1 0.1 Absolute Basophils (0.0 - 0.2 /CUMM) 0 0 PUBS MCHC (33.0 - 37.0 G/DL) 33.0 33.9
[2016-09-14 14:55] LABS: ABSOLUTE BASOPHIL COUNT 0 /CUMM (0.0-0.2); ABSOLUTE EOSINOPHIL COUNT 0 /CUMM (0.0-0.7); ABSOLUTE GRANULOCYTE CT 7.5 /CUMM (1.4-6.5); ABSOLUTE MONOCYTE COUNT 0.7 /CUMM (0.10-0.60); BASOPHIL % 0.4 % (0.0-2.0); EOSINOPHIL % 0.3 % (0-5); GRANULOCYTE % 81.2 % (42.2-75.2); HEMATOCRIT 29.9 % (37-47); MEAN CORPUSCULAR HGB 29.5 PG (27.0-31.0); MEAN CORPUSCULAR HGB CONC 33.1 G/DL (33.0-37.0); MEAN PLATELET VOLUME 8.1 FL (7.4-10.4); PLATELET COUNT 256 /CUMM (130-400); RBC DISTRIBUTION WIDTH 15.1 % (11.5-14.5); RED BLOOD CELL CT 3.36 /CUMM (4.20-5.40); WHITE BLOOD CELL COUNT 9.2 /CUMM (4.8-10.8)
[2016-09-14 16:00] VITALS: BP 124/64
[2016-09-14 23:05] LABS: ABSOLUTE BASOPHIL COUNT 0 /CUMM (0.0-0.2); ABSOLUTE EOSINOPHIL COUNT 0.1 /CUMM (0.0-0.7); ABSOLUTE GRANULOCYTE CT 6.3 /CUMM (1.4-6.5); ABSOLUTE LYMPH COUNT 1.2 /CUMM (1.2-3.4); ABSOLUTE MONOCYTE COUNT 0.9 /CUMM (0.10-0.60); BASOPHIL % 0.3 % (0.0-2.0); GRANULOCYTE % 74.4 % (42.2-75.2); HEMATOCRIT 27.7 % (37-47); MEAN CORPUSCULAR HGB 29.5 PG (27.0-31.0); MEAN CORPUSCULAR HGB CONC 33.4 G/DL (33.0-37.0); MEAN CORPUSCULAR VOLUME 88.5 FL (81.0-99.0); MEAN PLATELET VOLUME 8.3 FL (7.4-10.4); PLATELET COUNT 238 /CUMM (130-400); RBC DISTRIBUTION WIDTH 15.4 % (11.5-14.5); RED BLOOD CELL CT 3.13 /CUMM (4.20-5.40); WHITE BLOOD CELL COUNT 8.5 /CUMM (4.8-10.8)
[2016-09-15] VITALS: BP 102/56
[2016-09-15 05:44] LABS: ABSOLUTE BASOPHIL COUNT 0 /CUMM (0.0-0.2); ABSOLUTE EOSINOPHIL COUNT 0.1 /CUMM (0.0-0.7); ABSOLUTE GRANULOCYTE CT 6.2 /CUMM (1.4-6.5); ABSOLUTE LYMPH COUNT 0.8 /CUMM (1.2-3.4); ABSOLUTE MONOCYTE COUNT 0.8 /CUMM (0.10-0.60); BASOPHIL % 0.3 % (0.0-2.0); EOSINOPHIL % 0.8 % (0-5); GRANULOCYTE % 78.9 % (42.2-75.2); HEMATOCRIT 26.1 % (37-47); MEAN CORPUSCULAR HGB 29.6 PG (27.0-31.0); MEAN CORPUSCULAR HGB CONC 33.3 G/DL (33.0-37.0); MEAN CORPUSCULAR VOLUME 89.1 FL (81.0-99.0); MEAN PLATELET VOLUME 7.7 FL (7.4-10.4); PLATELET COUNT 209 /CUMM (130-400); RBC DISTRIBUTION WIDTH 15.1 % (11.5-14.5); RED BLOOD CELL CT 2.94 /CUMM (4.20-5.40); WHITE BLOOD CELL COUNT 7.9 /CUMM (4.8-10.8)
[2016-09-15 05:53] LABS: PT 17.5 SEC (9.4-12.5)
--- NOTE | 2016-09-15 07:06 | PN- Resident CRCU ---
CARLOS RITCHIE,BAHMAN 09/15/16 0705: Subjective HPI/CRCU Issues: Ms. Coleman was seen and evaluated at bedside this AM. She was sitting up comfortably in her bedside chair. She was noted to have one episode of stooling this morning that was maroon in color and mostly liquid, though there was one formed portion. Patient denied fever, chills, chest pain, dizziness, abdominal pain, nausea or vomiting. She denied any other episodes of bloody stool than the one noted above. 24 Hour Events: Patient continues in atrial fibrillation, episodes of bradycardia this AM to mid 40s noted. Objective Vital Signs & I&O Last 8 Hrs of Vitals and I&O: Intake & Output 09/15 1600 Intake Total Output Total Balance Number 1 Bowel Movements Patient 172 lb Weight Weight Bed scale Measurement Method Exam General Appearance: well developed/nourished, no apparent distress, alert, awake , comfortable Head: atraumatic, normal appearance Ears, Nose, Throat: normal pharynx, normal ENT inspection, hearing grossly normal Neck: normal inspection, supple Respiratory: normal breath sounds, chest non-tender Cardiovascular: irregularly irregular Gastrointestinal: normal bowel sounds, soft, non-tender Extremities: normal inspection, normal capillary refill Cranial Nerves: normal hearing, normal speech, PERRL Skin: intact, normal color Skin Temp/Moisture Exam: Warm/Dry Back: normal inspection Nutrition Nutrition: P.O. diet Current Medications: Current Medications Sig/Chuy Start time Last Medication Dose Route Stop Time Status Admin Furosemide 40 MG QAM 09/14 1000 AC 05/ PO 1001 Lisinopril 10 MG DAILY 09/14 1000 AC / PO 0947 Metoprolol Succinate 200 MG DAILY 09/14 1000 AC 05/07 PO 1000 Pantoprazole Sodium 40 MG DAILY 09/14 1000 AC /08 IV 0946 Potassium Chloride 40 MEQ ONCE ONE 09/15 0730 DC /08 PO 09/15 0731 0947 Sodium Chloride 1,000 ML Q13H 09/13 1400 AC 05/08 IV 0601 Warfarin Sodium 3 MG DAILY 09/14 1650 DC PO CXR Findings: IMPRESSION: No acute pulmonary process. No significant interval change is noted compared to previous study. EKG Findings: Atrial fibrillation with 66 HR, QTC 453, no ST changes. Impression/Plan Impression/Problem List Impression: Ms. Coleman is a pleasant 86 year old female with PMH colon cancer 30 years ago, lymphoma s/p chemotherapy and radiation, TIA, HTN, paroxysmal atrial fibrillation on coumadin who was transferred to [place] from a senior care facility due to bright red blood per rectum with clots. Patient is admitted to the ICU and the following is the management: Respiratory * No active issues at this point in time * Monitor respiratory status closelly and provide supplemental O2 as needed to keep sat >92% Infectious 1. Asymptomatic bacteriuria * Urine culture shows kelbsiella oxytoca * Patient asymptomatic, afebrile without leukocytosis * Will monitor for now Cardiac 1. Atrial fibrillation on coumadin, rate controlled * Coumadin on hold / GIB * Discuss with GI when acceptable to resume coumadin * Continuous tele monitoring for now * Of note, INR subtherapeutic to 1.68 2. Essential HTN * Continue toprol XL 200 mg PO daily pending HR (patient occasionally cata, hold for low HR) * Lisinopril 10 mg PO daily * Continue lasix 40 mg PO QAM Heme 1. Acute blood loss anemia secondary to lower GI bleed * Patient hemodynamically stable, follow vital signs closely * Monitor CBC closely, next at 5 pm * Transfuse if Hgb <8, type and screen sent * Patient given 5 mg PO vitamin K yesterday * Close tele monitoring * Follow up GI recommendations in regards to colonoscopy vs conservative management * IV protonix 40 mg daily * Full liquid diet for now * Continue to hold coumadin Metabolic * Electrolytes stable, gave 40 meq PO Kdur for K 3.6 * Trend ICU bundle daily Alimentary * Advanced patient to full liquid diet without reds per GI recommendations * Advance per GI, for now continue full liquid Neuro * No neuro issues at this point in time * Continue to monitor Skin * Repositioning as needed * No rashes noted, monitor Q shift FULL CODE DVTP: ALPS Full liquid diet with no reds Mild pain pathway Problem List: 1. Atrial fibrillation with controlled ventricular response 2. Lower GI bleeding 3. Anemia 4. Acute kidney injury 5. Syncope Pain Ratin Tomorrow's Labs & Rationales: CBC (trend H&H in setting of acute blood loss) ICU bundle (MARY on admission) Plan DVT/Prophylaxis: DALE Sofia MD 09/15/16 2203: Attending MD Review Statement Attending Sign Off Attending Cosign Statement: I have: examined this patient, reviewed [facility] EMR data, personally reviewd images, discussd w/resident/PA/[employer], discussed mgmt plan w/CM, discussed mgmt plan w/pt, agreed w/resident/PA/[employer], amended to note. Other Findings: The patient was seen and discussed with house staff. Appreciate GI follow-up. H/ H has been stable, although passed maroon stool earlier today. Will follow closely. Continue PPI.
[2016-09-15 08:00] VITALS: BP 144/70
[2016-09-15 12:00] VITALS: BP 118/70
--- NOTE | 2016-09-15 14:09 | PN- Gastroenterology ---
Assessment/Plan Assessment/Recommendations: Assessment: Ms. Coleman is an 86 year old female with a history of colon cancer and diverticulosis on coumadin for atrial fibrillation who presents with painless rectal bleeding which is quite likely secondary to a diverticular bleed and exacerbated by her anticoagulation. She continues to have some bloody bowel movements and her hgb has fallen significantly since admission, but it has been stable over the past 24-48 hours and she continues to be hemodynamically stable. Her INR is now less than 2 after getting vit K yesterday (FFP was not given). If her bleeding persists in spite of reversing her INR will then proceed with a therpeutic colonoscopy, but will continue to attempt to try and hold off on this if possible. Of note, while there is a risk of a CVA by holding her coumadin the risk of holding it for a few days is very small and her INR has only been under 2 starting today so I feel the risks of continuing anticoagulation with continued GI bleeding outweighs the benefit she would get from continuing it at this time. Recommendations: 1. Continue to observe in the ICU for close monitoring and in case endoscopic intervention is necessary over the weekend, but will continue to try and hold off on a colonoscopy for now. 2. Follow CBC q8hr and transfuse as needed to keep hgb > 8 3. Hold coumadin for now 4. Follow INR and would reverse INR with additional vitamin K and FFP considering the continued bleeding. 5. Maintain 2 large bore IVs at all times 6. Notify GI for hemodynamically significan bleeding and if her bleeding continues in spite of holding the coumadin and reversing her INR will then plan to prep for a colonoscopy. 7. Keep on full liquid diet for now with nothing red. I will continue to follow this patient and make further recommendations based on her clinical course and repeat blood work. Problem List: 1. AFIB ON COUMADIN 2. Lower GI bleeding Subjective Subjective: Patient passed a another maroon bowel movement this morning which reportedly filled the bedpan. She remains without any abdominal pain and she has been hemodynamically stable. Objective Vital Signs and I&Os Vital Signs Date Time Temp Pulse Resp B/P B/P Pulse O2 O2 Flow FiO2 Mean Ox Delivery Rate 09/15 1200 97.4 64 18 118/70 94 Room Air 09/15 0947 48 134/74 09/15 0800 Room Air 09/15 0800 98.7 70 18 144/70 96 Room Air 09/15 0400 97 Room Air Room Air 09/15 0000 95 Room Air Room Air 09/15 0000 97.5 59 21 102/56 95 Room Air Room Air 09/14 2000 96 Room Air Room Air 09/14 1600 97 Room Air Room Air 09/14 1600 97.3 69 23 124/64 97 Room Air Room Air Intake & Output 09/15 0400 09/14 1600 09/14 0400 09/13 1600 09/13 0400 Intake Total 641 225 5386 577 0 Output Total 240 1230 1450 200 700 Balance 654 -359 -687 377 -700 Intake, IV 993 805 3266 577 Intake, Oral 120 80 0 0 Number 1 1 1 1 Bowel Movements Output, Urine 240 1230 1450 200 700 Patient 172 lb 177 lb 170 lb 170 lb Weight Weight Bed scale Bed scale Reported by Patient Measurement Method Physical Exam General Appearance: well developed/nourished, no apparent distress, comfortable Head: atraumatic, normal appearance Neck: normal inspection, supple, full range of motion Respiratory: normal breath sounds, chest non-tender, no respiratory distress Cardiovascular: irregularly irregular Skin: intact, normal color Current Medications: Current Medications Sig/Chuy Start time Last Medication Dose Route Stop Time Status Admin Furosemide 40 MG QAM 09/14 1000 AC 09/14 PO 1001 Lisinopril 10 MG DAILY 09/14 1000 AC 09/15 PO 0947 Metoprolol Succinate 200 MG DAILY 09/14 1000 AC 09/14 PO 1000 Pantoprazole Sodium 40 MG DAILY 09/14 1000 AC 09/15 IV 0946 Potassium Chloride 40 MEQ ONCE ONE 09/15 0630 DC 09/15 PO 09/15 0731 0947 Sodium Chloride 1,000 ML Q13H 09/13 1400 AC 09/15 IV 0601 Warfarin Sodium 3 MG DAILY 09/14 1650 DC PO Results Pertinent Lab Results: Laboratory Tests 09/15 09/14 0528 2213 Chemistry Sodium (137 - 145 mmol/L) 140 Potassium (3.5 - 5.1 mmol/L) 3.6 Chloride (98 - 107 mmol/L) 107 Carbon Dioxide (22 - 30 mmol/L) 25 Anion Gap (5 - 16) 8 BUN (7 - 17 mg/dL) 22 H Creatinine (0.5 - 1.0 mg/dL) 0.8 Estimated GFR (>60 ml/min) > 60 Glucose (65 - 99 mg/dL) 87 Calcium (8.4 - 10.2 mg/dL) 8.1 L Phosphorus (2.5 - 4.5 mg/dL) 3.8 Magnesium (1.6 - 2.3 mg/dL) 1.9 Total Bilirubin (0.2 - 1.3 mg/dL) 1.1 AST (14 - 36 U/L) 17 ALT (9 - 52 U/L) 33 Albumin (3.5 - 5.0 g/dL) 2.8 L Coagulation PT (9.4 - 12.5 SEC) 17.5 H INR (0.90 - 1.19) 1.68 H Hematology CBC w Diff NO MAN DIFF REQ NO MAN DIFF REQ WBC (4.8 - 10.8 /CUMM) 7.9 8.5 RBC (4.20 - 5.40 /CUMM) 2.94 L 3.13 L Hgb (12.0 - 16.0 G/DL) 8.7 L 9.2 L Hct (37 - 47 %) 26.1 L 27.7 L MCV (81.0 - 99.0 FL) 89.1 88.5 MCH (27.0 - 31.0 PG) 29.6 29.5 RDW (11.5 - 14.5 %) 15.1 H 15.4 H Plt Count (130 - 400 /CUMM) 209 238 MPV (7.4 - 10.4 FL) 7.7 8.3 Gran % (42.2 - 75.2 %) 78.9 H 74.4 Lymphocytes % (20.5 - 51.1 %) 10.4 L 13.7 L Monocytes % (1.7 - 9.3 %) 9.6 H 10.6 H Eosinophils % (0 - 5 %) 0.8 1.0 Basophils % (0.0 - 2.0 %) 0.3 0.3 Absolute Granulocytes (1.4 - 6.5 /CUMM) 6.2 6.3 Absolute Lymphocytes (1.2 - 3.4 /CUMM) 0.8 L 1.2 Absolute Monocytes (0.10 - 0.60 /CUMM) 0.8 H 0.9 H Absolute Eosinophils (0.0 - 0.7 /CUMM) 0.1 0.1 Absolute Basophils (0.0 - 0.2 /CUMM) 0 0 PUBS MCHC (33.0 - 37.0 G/DL) 33.3 33.4 05/07 05/07 1405 0545 Chemistry Sodium (137 - 145 mmol/L) 137 Potassium (3.5 - 5.1 mmol/L) 4.1 Chloride (98 - 107 mmol/L) 104 Carbon Dioxide (22 - 30 mmol/L) 24 Anion Gap (5 - 16) 8 BUN (7 - 17 mg/dL) 26 H Creatinine (0.5 - 1.0 mg/dL) 0.9 Estimated GFR (>60 ml/min) 59 L BUN/Creatinine Ratio (7 - 25 %) 28.9 H Coagulation PT (9.4 - 12.5 SEC) 23.6 H INR (0.90 - 1.19) 2.27 H Hematology CBC w Diff NO MAN DIFF REQ NO MAN DIFF REQ WBC (4.8 - 10.8 /CUMM) 9.2 6.6 RBC (4.20 - 5.40 /CUMM) 3.36 L 3.07 L Hgb (12.0 - 16.0 G/DL) 9.9 L 9.1 L Hct (37 - 47 %) 29.9 L 27.2 L MCV (81.0 - 99.0 FL) 89.0 88.8 MCH (27.0 - 31.0 PG) 29.5 29.8 RDW (11.5 - 14.5 %) 15.1 H 15.1 H Plt Count (130 - 400 /CUMM) 256 212 MPV (7.4 - 10.4 FL) 8.1 8.2 Gran % (42.2 - 75.2 %) 81.2 H 75.8 H Lymphocytes % (20.5 - 51.1 %) 10.8 L 13.7 L Monocytes % (1.7 - 9.3 %) 7.3 9.0 Eosinophils % (0 - 5 %) 0.3 1.1 Basophils % (0.0 - 2.0 %) 0.4 0.4 Absolute Granulocytes (1.4 - 6.5 /CUMM) 7.5 H 5.0 Absolute Lymphocytes (1.2 - 3.4 /CUMM) 1.0 L 0.9 L Absolute Monocytes (0.10 - 0.60 /CUMM) 0.7 H 0.6 Absolute Eosinophils (0.0 - 0.7 /CUMM) 0 0.1 Absolute Basophils (0.0 - 0.2 /CUMM) 0 0 PUBS MCHC (33.0 - 37.0 G/DL) 33.1 33.5 05/06 05/06 2255 1351 Coagulation PT (9.4 - 12.5 SEC) 25.3 H INR (0.90 - 1.19) 2.43 H Hematology CBC w Diff NO MAN DIFF REQ NO MAN DIFF REQ WBC (4.8 - 10.8 /CUMM) 7.5 8.6 RBC (4.20 - 5.40 /CUMM) 3.14 L 3.62 L Hgb (12.0 - 16.0 G/DL) 9.2 L 10.7 L Hct (37 - 47 %) 27.9 L 32.3 L MCV (81.0 - 99.0 FL) 88.9 89.4 MCH (27.0 - 31.0 PG) 29.4 29.5 RDW (11.5 - 14.5 %) 15.5 H 15.4 H Plt Count (130 - 400 /CUMM) 231 277 MPV (7.4 - 10.4 FL) 7.6 8.1 Gran % (42.2 - 75.2 %) 71.6 73.2 Lymphocytes % (20.5 - 51.1 %) 16.1 L 15.5 L Monocytes % (1.7 - 9.3 %) 9.8 H 9.8 H Eosinophils % (0 - 5 %) 1.9 1.1 Basophils % (0.0 - 2.0 %) 0.6 0.4 Absolute Granulocytes (1.4 - 6.5 /CUMM) 5.4 6.3 Absolute Lymphocytes (1.2 - 3.4 /CUMM) 1.2 1.3 Absolute Monocytes (0.10 - 0.60 /CUMM) 0.7 H 0.8 H Absolute Eosinophils (0.0 - 0.7 /CUMM) 0.1 0.1 Absolute Basophils (0.0 - 0.2 /CUMM) 0 0 PUBS MCHC (33.0 - 37.0 G/DL) 33.0 33.0 05/06 0835 Chemistry Sodium (137 - 145 mmol/L) 140 Potassium (3.5 - 5.1 mmol/L) 4.8 Chloride (98 - 107 mmol/L) 100 Carbon Dioxide (22 - 30 mmol/L) 28 Anion Gap (5 - 16) 12 BUN (7 - 17 mg/dL) 32 H Creatinine (0.5 - 1.0 mg/dL) 0.9 Estimated GFR (>60 ml/min) 59 L BUN/Creatinine Ratio (7 - 25 %) 35.6 H Glucose (65 - 99 mg/dL) 108 H Calcium (8.4 - 10.2 mg/dL) 8.9 Magnesium (1.6 - 2.3 mg/dL) 2.0 Total Bilirubin (0.2 - 1.3 mg/dL) 0.6 AST (14 - 36 U/L) 20 ALT (9 - 52 U/L) 32 Alkaline Phosphatase (<127 U/L) 72 Total Protein (6.3 - 8.2 g/dL) 6.6 Albumin (3.5 - 5.0 g/dL) 3.7 Globulin (1.9 - 4.2 gm/dL) 2.9 Albumin/Globulin Ratio (1.1 - 2.2 %) 1.3 Coagulation PT (9.4 - 12.5 SEC) 22.9 H INR (0.90 - 1.19) 2.20 H Hematology CBC w Diff NO MAN DIFF REQ WBC (4.8 - 10.8 /CUMM) 7.2 RBC (4.20 - 5.40 /CUMM) 4.09 L Hgb (12.0 - 16.0 G/DL) 12.3 Hct (37 - 47 %) 36.4 L MCV (81.0 - 99.0 FL) 89.0 MCH (27.0 - 31.0 PG) 30.2 RDW (11.5 - 14.5 %) 15.3 H Plt Count (130 - 400 /CUMM) 279 MPV (7.4 - 10.4 FL) 8.1 Gran % (42.2 - 75.2 %) 78.0 H Lymphocytes % (20.5 - 51.1 %) 11.2 L Monocytes % (1.7 - 9.3 %) 9.5 H Eosinophils % (0 - 5 %) 0.8 Basophils % (0.0 - 2.0 %) 0.5 Absolute Granulocytes (1.4 - 6.5 /CUMM) 5.6 Absolute Lymphocytes (1.2 - 3.4 /CUMM) 0.8 L Absolute Monocytes (0.10 - 0.60 /CUMM) 0.7 H Absolute Eosinophils (0.0 - 0.7 /CUMM) 0.1 Absolute Basophils (0.0 - 0.2 /CUMM) 0 PUBS MCHC (33.0 - 37.0 G/DL) 33.9
[2016-09-15 16:00] VITALS: BP 114/70
[2016-09-15 18:38] LABS: ABSOLUTE BASOPHIL COUNT 0 /CUMM (0.0-0.2); ABSOLUTE EOSINOPHIL COUNT 0.1 /CUMM (0.0-0.7); ABSOLUTE GRANULOCYTE CT 7.9 /CUMM (1.4-6.5); ABSOLUTE LYMPH COUNT 1.3 /CUMM (1.2-3.4); ABSOLUTE MONOCYTE COUNT 0.8 /CUMM (0.10-0.60); BASOPHIL % 0.4 % (0.0-2.0); EOSINOPHIL % 0.8 % (0-5); GRANULOCYTE % 78.2 % (42.2-75.2); HEMATOCRIT 26.3 % (37-47); MEAN CORPUSCULAR HGB 29.8 PG (27.0-31.0); MEAN CORPUSCULAR HGB CONC 33.2 G/DL (33.0-37.0); MEAN CORPUSCULAR VOLUME 89.7 FL (81.0-99.0); MEAN PLATELET VOLUME 8.4 FL (7.4-10.4); PLATELET COUNT 230 /CUMM (130-400); RBC DISTRIBUTION WIDTH 15.3 % (11.5-14.5); RED BLOOD CELL CT 2.93 /CUMM (4.20-5.40); WHITE BLOOD CELL COUNT 10.1 /CUMM (4.8-10.8)
[2016-09-16 05:25] LABS: ABSOLUTE BASOPHIL COUNT 0 /CUMM (0.0-0.2); ABSOLUTE EOSINOPHIL COUNT 0.1 /CUMM (0.0-0.7); ABSOLUTE LYMPH COUNT 0.9 /CUMM (1.2-3.4); ABSOLUTE MONOCYTE COUNT 0.7 /CUMM (0.10-0.60); BASOPHIL % 0.3 % (0.0-2.0); EOSINOPHIL % 1.6 % (0-5); GRANULOCYTE % 74.8 % (42.2-75.2); HEMATOCRIT 23.7 % (37-47); MEAN CORPUSCULAR HGB 30.3 PG (27.0-31.0); MEAN CORPUSCULAR HGB CONC 33.6 G/DL (33.0-37.0); MEAN CORPUSCULAR VOLUME 90.3 FL (81.0-99.0); MEAN PLATELET VOLUME 8.2 FL (7.4-10.4); PLATELET COUNT 169 /CUMM (130-400); RBC DISTRIBUTION WIDTH 15.6 % (11.5-14.5); RED BLOOD CELL CT 2.63 /CUMM (4.20-5.40); WHITE BLOOD CELL COUNT 6.6 /CUMM (4.8-10.8)
[2016-09-16 05:28] LABS: PT 13.7 SEC (9.4-12.5)
--- NOTE | 2016-09-16 06:47 | PN- Resident CRCU ---
CARLOS RITCHIE,BAHMAN 09/16/16 0646: Subjective HPI/CRCU Issues: Ms. Coleman seen and evaluated at bedside this AM. She is resting comfortably in bed and offers no complaints. She reports she has no nausea, vomiting, abdominal pain, discomfort, diarrhea or bloody stool. Patient is tolerating a full liquid diet well. 24 Hour Events: Patient continues in atrial fibrillation. Objective Vital Signs & I&O Last 8 Hrs of Vitals and I&O: Intake & Output 09/16 1600 Intake Total 682 Output Total 125 Balance 557 Intake, IV 322 Intake, Oral 360 Output, Urine 125 Exam General Appearance: well developed/nourished, no apparent distress, alert, awake , comfortable Head: atraumatic, normal appearance Ears, Nose, Throat: normal pharynx, normal ENT inspection, hearing grossly normal Neck: normal inspection, supple Respiratory: normal breath sounds, chest non-tender Cardiovascular: irregularly irregular Gastrointestinal: normal bowel sounds, soft, non-tender, no organomegaly Extremities: normal inspection Cranial Nerves: normal hearing, normal speech, PERRL Skin: intact, normal color Skin Temp/Moisture Exam: Warm/Dry Back: normal inspection Nutrition Nutrition: P.O. diet (Full liquid without reds) Current Medications: Current Medications Sig/Chuy Start time Last Medication Dose Route Stop Time Status Admin Furosemide 40 MG QAM 09/14 1000 AC 09/16 PO 0846 Lisinopril 10 MG DAILY 09/14 1000 AC 09/16 PO 0849 Metoprolol Succinate 200 MG DAILY 09/14 1000 AC 09/16 PO 0849 Pantoprazole Sodium 40 MG DAILY 09/14 1000 AC 09/16 IV 0846 Sodium Chloride 1,000 ML Q13H 09/13 1400 AC 09/16 IV 0541 CXR Findings: IMPRESSION: No acute pulmonary process. No significant interval change is noted compared to previous study. Impression/Plan Impression/Problem List Impression: Ms. Coleman is a pleasant 86 year old female with PMH colon cancer 30 years ago, lymphoma s/p chemotherapy and radiation, TIA, HTN, paroxysmal atrial fibrillation on coumadin who was transferred to [place] [facility] due to bright red blood per rectum with clots. Patient is admitted to the ICU and the following is the management: Respiratory * No active issues at this point in time * Monitor respiratory status closelly and provide supplemental O2 as needed to keep sat >92% Infectious 1. Asymptomatic bacteriuria * Urine culture shows kelbsiella oxytoca * Patient asymptomatic, afebrile without leukocytosis * Will monitor off antibiotics for now Cardiac 1. Atrial fibrillation on coumadin, rate controlled * Coumadin on hold 2/2 GIB * Discuss with GI when acceptable to resume coumadin * Of note, INR subtherapeutic to 1.31 * Patient has chronic atrial fibrillation that is stable, transfer to [facility] as per medical attending 2. Essential HTN * Continue toprol XL 200 mg PO daily pending HR (patient occasionally cata, hold for low HR) * Lisinopril 10 mg PO daily * Continue lasix 40 mg PO QAM Heme 1. Acute blood loss anemia secondary to lower GI bleed * Patient hemodynamically stable, follow vital signs closely * Monitor CBC closely, next at 5 pm * Transfuse if Hgb <8, type and screen sent * Follow up GI recommendations, conservative approach for now * IV protonix 40 mg daily * Full liquid diet for now, advance per GI recommendations * Continue to hold coumadin * Patient stable for [facility] transfer as per attending Dr. Sneha MD Metabolic * Electrolytes stable * Trend ICU bundle daily Alimentary * Continue full liquid diet without reds per GI recommendations * Advance per GI Neuro * No neuro issues at this point in time * Continue to monitor Skin * Repositioning as needed * No rashes noted, monitor Q shift FULL CODE DVTP: ALPS Full liquid diet with no reds Mild pain pathway Problem List: 1. Atrial fibrillation with controlled ventricular response 2. Lower GI bleeding 3. Anemia 4. Acute kidney injury Pain Ratin Tomorrow's Labs & Rationales: CBC (trending Q12), BEP (monitor renal function, electrolytes), INR (holding coumadin) Plan DVT/Prophylaxis: DALE Sofia MD 09/16/16 2137: Attending Review Statement Attending Sign Off Attending Cosign Statement: I have: examined this patient, reviewed [facility] EMR data, discussd w/resident/PA/ [employer], discussed mgmt plan w/bert, discussed mgmt plan w/pt, agreed w/resident/PA/[employer] , amended to note. Other Findings: The patient was seen and discussed with house staff. OK to transfer to general medical floor. Watch closely for any further bleeding. PT consult.
[2016-09-16 08:00] VITALS: BP 108/60
[2016-09-16 10:05] VITALS: BP 118/64
--- NOTE | 2016-09-16 11:27 | Transfer of Care Summary ---
Hospital Course Course Hospital Course: Ms. Coleman is a pleasant 86 year old female with PMH colon cancer 30 years ago, lymphoma s/p chemotherapy and radiation, TIA, HTN and paroxysmal atrial fibrillation on coumadin who was transferred to [place] from a long term facility due to bright red blood per rectum with clots. In the ED: Vital signs showed Patient is admitted to the ICU and the following is the management: T 97.1, HR 67, RR 15, BP 110/71, O2 98% on RA. Labs were significant for WBC 7.2, H&H 12.3/ 36.4, Plt 279, Na 140, K 4.8, Cl 100, HCO3 28, BUN 32, Cre 0.9, [id number],Mag 2, INR 2.2. EKG showed atrial fibrillation with HR 66 bpm, QTC 453, no ST/T changes. CXR showed no acute process. Patient was admitted for acute blood loss anemia due to lower GI bleed and the following was the management while she was in the ICU: 1. Acute blood loss anemia secondary to lower GI bleed: Noted to be likely 2/2 diverticular bleed exacerbated by chronic coumadin use for atrial fibrillation. CBC was trended Q8H with transfusion required if H&H drops below 8. Dr. Mariano MD was notified for a GI consult. Coumadin immediately placed on hold. Protonix IV daily given and 5 mg PO vitamin K was given once on 09/14/16. GI suggested a conservative approach without endoscopic intervention. Patient was maintained on a full liquid diet without reds. Patient remained hemodynamically stable with last bloody bowel movement being on 09/15/16, thus she was downgraded to the general medicine floor. Continue to follow GI recommendations in regards to conservative approach vs intervention, monitor CBC closely and monitor for further episodes of GIB. 2. Atrial fibrillation on coumadin: As noted above, patient had coumadin held from admission. INR trended daily. Patient given vitamin K 5 mg once to reverse INR. We continued toprol XL 200 mg PO daily. She remains rate controlled and hemodynamically stable. General medicine team will need to discuss with GI when to reintroduce coumadin and consider bridging. 3. HTN: Patient was continued on 10 mg PO daily lisinopril and 40 mg PO lasix daily. 4. Code status: FULL 5. DVTP: ALPS, no pharm in the setting of GIB 6. Diet: Full liquid without reds Complications: None. Assessment/Plan: 1. Follow attending note 2. Follow GI note 3. Trend CBC Q12 H 4. Transfuse if Hgb <8 5. Continue to hold coumadin pending GI recommendations
[2016-09-16] MEDS ORDERED: OMEPRAZOLE20 M2 PO (13:47)
--- NOTE | 2016-09-16 13:50 | Patient Discharge Instructions ---
Discharge Instructions General Discharge Information You were seen/treated for: GI bleed Special Instructions: - Please follow up with PCP in 1 week - Please monitor CBC, transfuse if less than 8 - Please follow up with GI in 1 month - Please hold aspirin until 09/24/16, can resume if no further GI bleeding. - Please follow up with Dr. Hardwick, Cardiology, in 1 week - Please stop taking coumadin Diet Continue normal diet: Yes Activity Full Activity/No Limits: Yes Acute Coronary Syndrome Inclusion Criteria At DC or during hospital stay patient has or had the following: ACS DIAGNOSIS No Discharge Core Measures Meds if any: Prescribed or Continued at Discharge Meds if any: NOT Prescribed or Continued at Discharge Congestive Heart Failure Inclusion Criteria At DC or during hospital stay patient has or had the following: CHF DIAGNOSIS No Discharge Core Measures Meds if any: Prescribed or Continued at Discharge Meds if any: NOT Prescribed or Continued at Discharge Cerebrovascular accident Inclusion Criteria At DC or during hospital stay patient has or had the following: CVA/TIA Diagnosis No Discharge Core Measures Meds if any: Prescribed or Continued at Discharge Meds if any: NOT Prescribed or Continued at Discharge Venous thromboembolism Inclusion Criteria VTE Diagnosis No VTE Type NONE VTE Confirmed by (Test) NONE Discharge Core Measures - Per Current guidelines, there needs to be overlap - treatment for the first 5 days of Warfarin therapy. - If discharged on Warfarin prior to 5 days of - overlap therapy, the patient will need to be - assessed for post discharge needs including - *Post discharge parental anticoagulation - *Warfarin and/or parental anticoagulation education - *Follow up date to check INR post discharge At least 5 days overlap therapy as Inpatient No Meds if any: Prescribed or Continued at Discharge Note: Overlap Therapy is Warfarin and Anticoagulant Meds if any: NOT Prescribed or Continued at Discharge
[2016-09-16 14:20] VITALS: BP 122/58
[2016-09-16 17:40] LABS: ABSOLUTE BASOPHIL COUNT 0 /CUMM (0.0-0.2); ABSOLUTE EOSINOPHIL COUNT 0.1 /CUMM (0.0-0.7); ABSOLUTE GRANULOCYTE CT 7.5 /CUMM (1.4-6.5); ABSOLUTE MONOCYTE COUNT 0.9 /CUMM (0.10-0.60); BASOPHIL % 0.1 % (0.0-2.0); EOSINOPHIL % 1.4 % (0-5); GRANULOCYTE % 78.6 % (42.2-75.2); HEMATOCRIT 26.5 % (37-47); MEAN CORPUSCULAR HGB CONC 33.7 G/DL (33.0-37.0); MEAN CORPUSCULAR VOLUME 89.2 FL (81.0-99.0); PLATELET COUNT 217 /CUMM (130-400); RBC DISTRIBUTION WIDTH 15.5 % (11.5-14.5); RED BLOOD CELL CT 2.97 /CUMM (4.20-5.40); WHITE BLOOD CELL COUNT 9.6 /CUMM (4.8-10.8)
[2016-09-16 22:40] VITALS: BP 120/68
--- NOTE | 2016-09-17 06:38 | PN- Housestaff ---
See Addendum LOW RITCHIE,ARNEL 09/17/16 0638: Subjective Follow-up For: gi bleed Subjective: pt was seen today, she was feeling well, she reported last bm yesterday, she is unsure if it has blood. last documented bm was 09/15/16 she has had urinary frequency, with clear urine, no dysuria, uc from september 13 grew klebsiella, she is not on abx. labs still pending from today (cbc and inr) will get Dr. Hardwick to weigh in on restarting aspirin and coumadin. Review of Systems Constitutional: Reports: see HPI. Objective Last 24 Hrs of Vital Signs/I&O Vital Signs Date Time Temp Pulse Resp B/P B/P Pulse O2 O2 Flow FiO2 Mean Ox Delivery Rate 09/17 1018 69 128/64 09/17 1017 69 128/64 09/17 0909 Room Air Room Air 09/17 0843 67 100/60 09/17 0833 Room Air Room Air 09/17 0700 98.6 67 18 120/56 92 Room Air 09/16 2240 98.8 78 22 120/68 96 Room Air 09/16 1420 98.3 71 20 122/58 94 Room Air Intake & Output 09/17 1600 09/17 0800 09/17 0000 Intake Total 240 600 Output Total 300 Balance 240 300 Intake, Oral 240 600 Output, Urine 300 Physical Exam General Appearance: Alert, Oriented X3, Cooperative, No Acute Distress Cardiovascular: irregular rate, but rate controlled Lungs: Clear to Auscultation, Normal Air Movement Abdomen: Normal Bowel Sounds, Soft, No Tenderness Extremities: No Edema Current Medications: Current Medications Sig/Chuy Start time Last Medication Dose Route Stop Time Status Admin Furosemide 40 MG QAM 09/14 1000 AC 09/17 PO 1017 Lisinopril 10 MG DAILY 09/14 1000 AC 09/17 PO 1018 Metoprolol Succinate 200 MG DAILY 09/14 1000 AC 09/17 PO 1017 Omeprazole 40 MG DAILY AC 09/17 0700 AC 09/17 PO 0605 Omeprazole 40 MG DAILY AC 09/16 1155 DC PO Pantoprazole Sodium 40 MG DAILY 09/14 1000 DC 09/16 IV 0846 Last 24 Hrs of Lab/Zev Results Last 24 Hrs of Labs/Mics: Laboratory Tests 09/16/16 1715: CBC w Diff NO MAN DIFF REQ, RBC 2.97 L, MCV 89.2, MCH 30.0, RDW 15.5 H, MPV 8.0, Gran % 78.6 H, Lymphocytes % 10.6 L, Monocytes % 9.3, Eosinophils % 1.4, Basophils % 0.1, Absolute Granulocytes 7.5 H, Absolute Lymphocytes 1.0 L, Absolute Monocytes 0.9 H, Absolute Eosinophils 0.1, Absolute Basophils 0, PUBS MCHC 33.7 Assessment/Plan Assessment: Ms. Coleman is a pleasant 86 year old female with PMH colon cancer 30 years ago, lymphoma s/p chemotherapy and radiation, TIA, HTN and paroxysmal atrial fibrillation on coumadin who was transferred to [place] due to bright red blood per rectum with clots. # Acute blood loss anemia secondary to lower GI bleed: Noted to be likely 2/2 diverticular bleed exacerbated by chronic coumadin use for atrial fibrillation. Dr. Mariano MD was consulted. Coumadin immediately placed on hold. Protonix IV daily given and 5 mg PO vitamin K was given once on 09/14/16. GI suggested a conservative approach without endoscopic intervention. * Patient remained hemodynamically stable with last bloody bowel movement being on 09/15/16 * CBC daily, transfuse if less than 8 * Continue oral PPI # Atrial fibrillation on coumadin: As noted above, patient had coumadin held from admission. INR trended daily. Patient given vitamin K 5 mg once to reverse INR. * We continued toprol XL 200 mg PO daily. She remains rate controlled and hemodynamically stable. * Cardiology consulted to restart aspirin and warfarin given hx of a fib * INR daily # HTN * Patient was continued on 10 mg PO daily lisinopril and 40 mg PO lasix daily. Heart healthy diet DVTP: ALPS, no pharm in the setting of GIB FULL CODE Problem List: 1. Lower GI bleeding Pain Ratin Pain Location: none Pain Goal: Remain pain free Pain Plan: none Tomorrow's Labs & Rationales: cbc for abla for gi bleed DVT/Prophylaxis: DALLAS Garcia 09/17/16 1155: Attending Review Statement Attending Statement Attending MD Statement: examined this patient, discuss w/resident/PA/PYTHON PROGRAMMER, agreed w/resident/PA/PYTHON PROGRAMMER, discussed with family, reviewed EMR data (avail), discussed with nursing, discussed with case mgmt, reviewed images, amended to note Attending Assessment/Plan: 86 o/f with h/o afib on couamdin comes with GI bleed, hemodynamically stable. Watch closely for any further bleeding. Cardio consult, her [id number] of stroke. PT consult.
[2016-09-17 07:00] VITALS: BP 120/56
[2016-09-17 08:43] VITALS: BP 100/60
[2016-09-17 13:21] LABS: ABSOLUTE BASOPHIL COUNT 0 /CUMM (0.0-0.2); ABSOLUTE EOSINOPHIL COUNT 0.1 /CUMM (0.0-0.7); ABSOLUTE GRANULOCYTE CT 8.6 /CUMM (1.4-6.5); ABSOLUTE LYMPH COUNT 1.1 /CUMM (1.2-3.4); BASOPHIL % 0.2 % (0.0-2.0); EOSINOPHIL % 0.6 % (0-5); GRANULOCYTE % 79.5 % (42.2-75.2); HEMATOCRIT 28.5 % (37-47); MEAN CORPUSCULAR HGB 29.7 PG (27.0-31.0); MEAN CORPUSCULAR HGB CONC 33.1 G/DL (33.0-37.0); MEAN CORPUSCULAR VOLUME 89.5 FL (81.0-99.0); MEAN PLATELET VOLUME 8.1 FL (7.4-10.4); PLATELET COUNT 297 /CUMM (130-400); RBC DISTRIBUTION WIDTH 15.7 % (11.5-14.5); RED BLOOD CELL CT 3.19 /CUMM (4.20-5.40); WHITE BLOOD CELL COUNT 10.8 /CUMM (4.8-10.8)
[2016-09-17 13:34] LABS: PT 12.3 SEC (9.4-12.5)
--- NOTE | 2016-09-17 14:22 | Discharge Summary ---
Visit Information Visit Dates Admission Date: 09/13/16 Discharge Date: 09/18/16 Hospital Course Course Attending Physician: DALLAS HUMPHRIES MD Primary Care Physician: ALAN RITCHIE,JUDIE Escalante Consulting Request: 1 Consulting Specialty: Gastroenterology Consulting Request: 2 Consulting Specialty: Cardiology Hospital Course: This is an 86-year-old lady with past medical history significant for colon cancer 30 years ago, lymphoma treated with chemotherapy and radiation, TIA, hypertension, paroxysmal atrial fibrillation on warfarin was transferred to [facility] from a [facility] facility due to bright red blood per rectum with clots. Vital signs on admission: Temperature 97.1, pulse rate 67, respiratory rate 15, blood pressure 110/71, oxygen saturation 98% on room air. Pertinent physical exam at the time of admission:General Appearance Alert, Oriented X3, Cooperative, No Acute Distress Skin No Rashes, No Breakdown Skin Temp/Moisture Exam: Warm/Dry Sepsis Skin Exam (color): Normal for Ethnicity HEENT Atraumatic Neck Supple Cardiovascular Regular Rate, Normal S1, Normal S2 Lungs Clear to Auscultation, Normal Air Movement Abdomen Normal Bowel Sounds, Soft, No Tenderness Neurological Normal Tone Extremities No Edema Lab data on admission: 09/13/16 0835: Anion Gap 12, Estimated GFR 59 L, BUN/Creatinine Ratio 35.6 H, Glucose 108 H, Calcium 8.9, Magnesium 2.0, Total Bilirubin 0.6, AST 20, ALT 32, Alkaline Phosphatase 72, Total Protein 6.6, Albumin 3.7, Globulin 2.9, Albumin/Globulin Ratio 1.3, PT 22.9 H, INR 2.20 H, CBC w Diff NO MAN DIFF REQ, RBC 4.09 L, MCV 89.0, MCH 30.2, RDW 15.3 H, MPV 8.1, Gran % 78.0 H, Lymphocytes % 11.2 L, Monocytes % 9.5 H, Eosinophils % 0.8, Basophils % 0.5, Absolute Granulocytes 5.6, Absolute Lymphocytes 0.8 L, Absolute Monocytes 0.7 H, Absolute Eosinophils 0.1, Absolute Basophils 0, PUBS MCHC 33.9 EKG: atrial fibrillation with 66 HR, QTC 453, no ST changes CXR: No acute pulmonary process. No significant interval change is noted compared to previous study. Patient was admitted for acute blood loss anemia due to lower GI bleed and the following was the management while she was in the ICU: Acute blood loss anemia secondary to lower GI bleed: Noted to be likely 2/2 diverticular bleed exacerbated by chronic warfarin use for atrial fibrillation. CBC was trended Q8H with transfusion required if H&H drops below 8. GI was consulted. Warfarin and aspirin were held. Protonix IV daily given and 5 mg PO vitamin K was given once on 09/14/16. GI suggested a conservative approach without endoscopic intervention. Patient was maintained on a full liquid diet without reds. Patient remained hemodynamically stable with last bloody bowel movement being on 09/15/16, thus she was downgraded to the general medicine floor. While on general medicine floor patient remained hemodynamically stable without any further bloody bowel movements. CBCs were monitored daily and remained stable. PPI was changed to by mouth. Atrial fibrillation on warfarin: As noted above, warfarin was held from admission. INR was trended daily. Patient given vitamin K 5 mg once to reverse INR. We continued toprol XL 200 mg PO daily. She remained rate controlled and hemodynamically stable. Per GI recommendation, aspirin and warfarin should be held for a week. Cardiology was consulted as well. Per cardiology recommendation, given multiple episodes of GI bleed and the fact that patient is high fall risk, also patient's life expectancy due to her age, frail status and multiple comorbidities, patient should not be on warfarin or NOAC. Per cardiology it is okay to restart aspirin at 81 mg daily in a week(09/24/16) if no further episode of GI bleeding. HTN: Chronic/stable. Patient was continued on 10 mg PO daily lisinopril and 40 mg PO lasix daily. Code status: FULL DVTP: ALPS, no pharm in the setting of GIB Complications: None Allergies: Coded Allergies: No Known Allergies (09/13/16) Significant Procedures: None Pertinent Lab Results: 09/16/16 1715: CBC w Diff NO MAN DIFF REQ, RBC 2.97 L, MCV 89.2, MCH 30.0, RDW 15.5 H, MPV 8.0, Gran % 78.6 H, Lymphocytes % 10.6 L, Monocytes % 9.3, Eosinophils % 1.4, Basophils % 0.1, Absolute Granulocytes 7.5 H, Absolute Lymphocytes 1.0 L, Absolute Monocytes 0.9 H, Absolute Eosinophils 0.1, Absolute Basophils 0, PUBS MCHC 33.7 Disposition Summary Disposition Principal Diagnosis: Acute blood loss anemia secondary to lower GI bleed Additional Diagnosis: Atrial fibrillation Discharge Disposition: SNF Discharge Instructions General Discharge Information Code Status: Full Code Patient's Diet: Heart Healthy Patient's Activity: As tolerated Follow-Up Instructions/Appts: - Please follow up with PCP in 1 week - Please monitor CBC every 2 days, transfuse if Hb less than 8 - Please follow up with GI in 1 month - Please hold aspirin until 09/24/16, can resume if no further GI bleeding. - Please follow up with Dr. Hammond, Cardiology, in 1 week - Please stop taking coumadin Medications at Discharge Discharge Medications: Stop taking the following medications: Warfarin Sodium (Coumadin) 3 MG TABLET ORAL DAILY Days = 30 Aspirin (Children's Aspirin) 81 MG TAB.CHEW ORAL DAILY Continue taking these medications: Furosemide (Furosemide) 20 MG TABLET 2 Tablet ORAL Every Morning Qty = 90 Comments: NOT GIVEN IN HOSPITAL Ramipril (Altace) 10 MG CAPSULE 1 Capsule ORAL TWICE DAILY Qty = 60 Comments: LISINOPRIL GIVEN IN HOSPITAL Last Taken: 04/18/15 Time: 9AM Amlodipine Besylate (Amlodipine Besylate) 2.5 MG TABLET 1 Tablet ORAL DAILY Qty = 30 Comments: Last Taken: 04/18/15 Time: 9AM Metoprolol Succinate (Metoprolol Succinate) 200 MG TAB.ER.24H 1 Tablet ORAL DAILY Qty = 30 Comments: Last Taken: 04/18/15 Time: 9AM ERGOCALCIFEROL (VITAMIN D2) (Drisdol) 50,000 IU SGL 50,000 International Unit ORAL EVERY THURSDAY Qty = 7 Comments: NOT GIVEN IN HOSPITAL Start taking the following new medications: Omeprazole (Omeprazole) 20 MG CAPSULE.DR 40 Milligram ORAL DAILY BEFORE BREAKFAST Days = 30 No Refills Copies To: ALAN RITCHIE,JUDIE HAMMOND MD PhD,JCARLOS [place]
--- NOTE | 2016-09-17 14:25 | PN- Student ---
Subjective Subjective: CC: Lower GI bleed HPI: Patient is an 85-year-old woman with past medical history significant for colon cancer status post left-sided hemicolectomy 30 years ago, non-hodgkin's lymphoma status post radiation and chemotherapy, TIA, hypertension, and paroxysmal atrial fibrillation who presented to [facility] from [facility] complaining of 2 episodes of bright red blood per rectum. As per the patient, she passed a scant amount of bright red blood per rectum on the night of 09/12/2016, and a large amount of bright red blood per rectum with clots on the morning of 09/13/2016. Her daughter reported that the patient had a similar episode 4 years ago at which point a colonoscopy showed evidence of diverticulosis without recurrence of colon cancer. Patient denies any belly pain, nausea, vomiting, heartburn, dysphagia, hematemesis, chest pain, difficulty breathing, dizziness, lightheadedness, or urinary complaints. Her appetite is good. Patient's daughter, Dara Coleman, helps with her decision making. She can be reached at . Past Medical History: Colon Cancer S/P Lef-Sided Hemicolectomy, Non-Hodgkin's Lymphoma S/P Radiation/Chemotherapy, TIA, HTN, Paroxysmal Atrial Fibrillation Past Surgical History: Left-Sided Hemicolectomy, Cholecystectomy, Inguinal Hernia Repair, Hysterectomy Family History: Non-Contributory Psychosocial History: Patient is on assisted living at [facility] and needs assistance for toileting, bathing, shopping, housework, finances. Sexual history was not obtained. Home Medication List: Amlodipine Besylate 2.5 mg Tablet 1 Tab PO Daily (BP) Aspirin (Children's Aspirin) 81 mg Tab 1 Tab PO Daily (Heart) Ergocalciferol (Vitamin D2) (Drisdol) 50,000 IU SGL 50,000 IU PO QMon (Vit. D Supplement) Furosemide 20 mg Tablet 2 Tab PO QAM (Water pill) Metoprolol Succinate 200 mg Tab.ER.24H 1 Tab PO Daily (BP) Ramipril (Altace) 10 mg Capsule 1 Cap PO BID (BP) Warfarin Sodium (Coumadin) 3 mg Tablet 1 Tab PO Daily (Blood Thinner) START FROM 04/19/15 Allergies: No known allergies Review of Systems: See HPI Objective Objective: Vital Signs Date Time Temp Pulse Resp B/P B/P Pulse O2 O2 Flow FiO2 Mean Ox Delivery Rate 09/17 1428 98.0 78 18 108/50 93 Room Air 09/17 1018 69 128/64 09/17 1017 69 128/64 09/17 0909 Room Air Room Air 09/17 0843 67 100/60 09/17 0833 Room Air Room Air 09/17 0700 98.6 67 18 120/56 92 Room Air 09/16 2240 98.8 78 22 120/68 96 Room Air Intake & Output 09/17 1600 09/17 0800 09/17 0000 Intake Total 240 600 Output Total 300 Balance 240 300 Intake, Oral 240 600 Output, Urine 300 Physical Exam General Appearance: Alert, Oriented X3, Cooperative, No Acute Distress Cardiovascular: Irregular rate (Controlled) Lungs: Clear to Auscultation, Normal Air Movement Abdomen: Normal Bowel Sounds, Soft, No Tenderness Extremities: No Edema Current Medications Sig/Chuy Start time Last Medication Dose Route Stop Time Status Admin Furosemide 40 MG QAM 09/14 1000 AC 09/17 PO 1017 Lisinopril 10 MG DAILY 09/14 1000 AC 09/17 PO 1018 Metoprolol Succinate 200 MG DAILY 09/14 1000 AC 09/17 PO 1017 Omeprazole 40 MG DAILY AC 09/17 0700 AC 09/17 PO 0605 Patient Med[facility]17 1402 [facility] 09/17 1403 Assessment/Plan Assessment: Patient is an 85-year-old woman with past medical history significant for colon cancer status post left-sided hemicolectomy 30 years ago, non-hodgkin's lymphoma status post radiation/chemotherapy, TIA, hypertension, and paroxysmal atrial fibrillation who presented to [facility] from [facility] complaining of 2 episodes of bright red blood per rectum. As per the patient, she passed a scant amount of bright red blood per rectum on the night of 2016, and a large amount of bright red blood per rectum with clots on the morning of 09/13/2016. 1 - Bright Red Blood Per Rectum 2 - Paroxysmal Atrial Fibrillation 3 - Hypertension Abdominal & Pelvis CT without IV Contrast - 04/15/2015 IMPRESSION: -Postoperative changes in the right abdomen without bowel obstruction. -Bilateral diverticulosis without diverticulitis. -High attenuation bowel contents again noted likely ingested material. -Possible rectal fecal impaction. -Cholecystectomy. - - - - - - - - - - - - - - - - - - - - - - - - - - - - - - - - - - - - - - - - - - - - - - - - - - - - - - - - 1. Bright Red Blood Per Rectum. Likely due to diverticular bleed exacerbated by coumadin for paroxysmal atrial fibrillation. Patient was given Vitamin K 5 mg PO on 09/14/2016 to reverse INR. Olayinka on daily IV Protonix. GI recommends conservative approach without endoscopic intervention. Last bloody bowel movement was on 09/15/2016. * Daily CBC * Transfuse if Hbg < 8 * PPI PO 2. Paroxysmal Atrial Fibrillation. Patient was held from coumadin on admission. Patient was given Vitamin K 5 mg PO to reverse INR. * Toprol XL 200 mg PO Daily * As per cardiology consult, restart Aspirin and Coumadin * Monitor INR Daily 3. Hypertension. * Lisinopril 10 mg PO Daily * Lasix 40 mg PO Daily Heart Healthy Diet DVT Prophylaxis Full code Heart Healthy Diet DVT Prophylaxis Full code
[2016-09-17 14:28] VITALS: BP 108/50
--- NOTE | 2016-09-17 15:25 | Event Note ---
Event Note Event Note: Spoke to Dr Quintana, would hold aspirin and coumadin for a week. Resume 09/24/16 if no further GI bleed.
--- NOTE | 2016-09-17 17:10 | Cons- Cardiology ---
General Information and HPI Consulting Request Date of Consult: 09/17/16 Requested By: DALLAS HUMPHRIES MD History of Present Illness: Ms. Coleman is an 86 year old female with history of hypertension, TIA and chronic atrial fibrillation who presented to [facility] for evaluation of bright red blood per rectum. She does carry a history of colon cancer as well as diverticulosis. At baseline this patient reports being able to ambulate with a walker but she admits to profound weakness at this time and cannot stand to support her weight. She, otherwise, is comfortable and is free of any chest discomfort, shortness of breath, lightheadedness or palpitations. A colonoscopy has been deferred and the patient was taken off aspirin and coumadin. Her H/H is now stable. Cardiac workup has included a prior echocardiogram that showed a normal EF. Allergies/Medications Allergies: Coded Allergies: No Known Allergies (09/13/16) Home Med List: Amlodipine Besylate 2.5 MG TABLET 1 TAB PO DAILY BP (Reported) ERGOCALCIFEROL (VITAMIN D2) (Drisdol) 50,000 IU SGL 50,000 IU PO QMON VIT D SUPPLEMENT Furosemide 20 MG TABLET 2 TAB PO QAM water pill (Reported) Metoprolol Succinate 200 MG TAB.ER.24H 1 TAB PO DAILY BP (Reported) Omeprazole 20 MG CAPSULE.DR 40 MG PO DAILY AC GI bleed Ramipril (Altace) 10 MG CAPSULE 1 CAP PO BID BP (Reported) Review of Systems Review of Systems: A twelve point review of systems is unremarkable. Past History Travel History Traveled to [place] past 21 day No Medical History Blood Transfusion Hx: Yes Neurological: CVA EENT: NONE Cardiovascular: AFIB, IRREGULAR HEART RATE Respiratory: NONE Gastrointestinal: NONE Hepatic: NONE Renal: NONE Musculoskeletal: NONE Psychiatric: NONE Endocrine: NONE Blood Disorders: NONE Cancer(s): colon/rectal cancer, non-hodgkin lymphoma CHEF SAUCIER/Reproductive: NONE Surgical History Surgical History: cholecystectomy, hernia repair-inguinal, hysterectomy, colon surgery Psychosocial History Where Do You Live? Assisted Living Services at Home: None Smoking Status: Never Smoked Functional Ability ADLs Independent: dressing, eating. Needs Assist: toileting, bathing. Ambulation: cane IADLs Needs Assist: shopping, housework, finances. Exam & Diagnostic Data Vital Signs and I&O Vital Signs Date Time Temp Pulse Resp B/P B/P Pulse O2 O2 Flow FiO2 Mean Ox Delivery Rate 05/10 1428 98.0 78 18 108/50 93 Room Air 09/17 1018 69 128/64 09/17 1017 69 128/64 09/17 0909 Room Air Room Air 09/17 0843 67 100/60 09/17 0833 Room Air Room Air 09/17 0700 98.6 67 18 120/56 92 Room Air 09/16 2240 98.8 78 22 120/68 96 Room Air Intake & Output 09/17 1600 09/17 0809/17 0000 09/16 1600 09/16 0809/16 0000 Intake Total 441 282 2484 697 918 Output Total 300 325 240 200 Balance 803 449 7224 457 718 Intake, IV 547 577 558 Intake, Oral 240 600 960 120 360 Output, Urine 300 325 240 200 Physical Exam: General: WD/ WN female in NAD; alert and oriented x 3 HEENT: NC/AT, PERRL, EOMI Neck: no JVD, no carotid bruit Heart: irregularly irregular Lungs: clear bilaterally Abdomen: soft, NT, +ve bowel sounds Extremities: no edema Assessment/Plan Assessment/Plan * This patient is at high risk for chronic anticoagulation with Coumadin or a NOAC. She has had multiple GI bleeds and her propensity for future bleeds has not been aggressively assessed although it is known that she has had colon CA, radiation and diverticulitis. In addition, this patient cannot support her own weight at this time and therfore is at risk for a serious fall. Although her history of atrial fibrillation with TIA does put her at risk for a subsequent stroke, this risk is limited by her life expectancy which due to her age, comorbidities and frail state is likely limited. I would restart aspirin at 81mg daily in a week. She should not be on Coumadin or a NOAC. * Continue Metoprolol for rate control. * Follow up in the office in one week. Consult Acknowledgment - Thank you for your consult request.
[2016-09-17 22:46] VITALS: BP 120/64
[2016-09-18 06:04] VITALS: BP 110/88
--- NOTE | 2016-09-18 07:03 | PN- Housestaff ---
LOW RITCHIE,ARNEL 09/18/16 0703: Subjective Follow-up For: gi bleed Subjective: pt seen today, feels fine. no bm will go to rehab today. noted drop in h/h, will recheck cbc in 2 days at facility. cardio recc noted, will resume aspirin in 1 week if no further gi bleed, and stop coumadin for now. f/u with Dr. Hardwick in 1 week. Review of Systems Constitutional: Reports: see HPI. Objective Last 24 Hrs of Vital Signs/I&O Vital Signs Date Time Temp Pulse Resp B/P B/P Pulse O2 O2 Flow FiO2 Mean Ox Delivery Rate 09/18 1124 99.2 80 20 106/60 09/18 0902 80 106/60 09/18 0902 80 106/60 09/18 0604 99.2 67 20 110/88 95 Room Air 09/17 2246 99.0 79 20 120/64 95 Room Air 09/17 1428 98.0 78 18 108/50 93 Room Air Intake & Output 09/18 1600 09/18 0800 09/18 0000 Intake Total 120 240 Output Total 200 Balance 120 40 Intake, Oral 120 240 Output, Urine 200 Physical Exam General Appearance: Alert, Cooperative, No Acute Distress Cardiovascular: irregular rate Lungs: Clear to Auscultation, Normal Air Movement Abdomen: Normal Bowel Sounds, Soft, No Tenderness Neurological: Normal Speech Extremities: No Edema Current Medications: Current Medications Sig/Chuy Start time Last Medication Dose Route Stop Time Status Admin Furosemide 40 MG QAM 09/14 1000 DCD 09/18 PO 0859 Lisinopril 10 MG DAILY 09/14 1000 DCD 09/18 PO 0902 Metoprolol Succinate 200 MG DAILY 09/14 1000 DCD 09/18 PO 0902 Omeprazole 40 MG DAILY AC 09/17 07 DCD 09/18 PO 0559 Patient Medication 1 ED .[facility] 09/17 1402 [place] Teaching ED 09/17 1403 Last 24 Hrs of Lab/Zev Results Last 24 Hrs of Labs/Mics: Laboratory Tests 09/18/16 0630: PT 13.1 H, INR 1.25 H, CBC w Diff NO MAN DIFF REQ, RBC 2.81 L, MCV 90.1, MCH 30.0, RDW 15.3 H, MPV 8.4, Gran % 76.5 H, Lymphocytes % 12.1 L, Monocytes % 9.7 H, Eosinophils % 1.5, Basophils % 0.2, Absolute Granulocytes 6.0, Absolute Lymphocytes 0.9 L, Absolute Monocytes 0.8 H, Absolute Eosinophils 0.1, Absolute Basophils 0, PUBS MCHC 33.3 Assessment/Plan Assessment: Ms. Coleman is a pleasant 86 year old female with PMH colon cancer 30 years ago, lymphoma s/p chemotherapy and radiation, TIA, HTN and paroxysmal atrial fibrillation on coumadin who was transferred to [place] [facility] due to bright red blood per rectum with clots. # Acute blood loss anemia secondary to lower GI bleed: Noted to be likely 2/2 diverticular bleed exacerbated by chronic coumadin use for atrial fibrillation. Dr. Mariano MD was consulted. Coumadin immediately placed on hold. Protonix IV daily given and 5 mg PO vitamin K was given once on 09/14/16. GI suggested a conservative approach without endoscopic intervention. * Patient remained hemodynamically stable with last bloody bowel movement being on 09/15/16 * Continue oral PPI # Atrial fibrillation on coumadin: As noted above, patient had coumadin held from admission. INR trended daily. Patient given vitamin K 5 mg once to reverse INR. * We continued toprol XL 200 mg PO daily. She remains rate controlled and hemodynamically stable. * Cardiology consulted , resume aspirin in 1 week if no further gib, stop coumadin. F/U with Dr. Hardwick in 1 week # HTN * Patient was continued on 10 mg PO daily lisinopril and 40 mg PO lasix daily. Heart healthy diet DVTP: ALPS, no pharm in the setting of GIB FULL CODE Problem List: 1. Lower GI bleeding Pain Ratin Pain Location: none Pain Goal: Remain pain free Pain Plan: mild pp Tomorrow's Labs & Rationales: none Consulting Request: Consulting Specialty: Cardiology DALLAS HUMPHRIES 09/18/16 1051: Attending MD Review Statement Attending Statement Attending MD Statement: examined this patient, discuss w/resident/PA/CUTTING MACHINE OFFBEARER, agreed w/resident/PA/CUTTING MACHINE OFFBEARER, discussed with family, reviewed EMR data (avail), discussed with nursing, discussed with case mgmt, reviewed images, amended to note Attending Assessment/Plan: 86 o/f with h/o afib on couamdin comes with GI bleed, hemodynamically stable. GI and Cardio consulted and rcommend to STOP coumadin and f/u o/p in 1 week, Patient managed conseravtvely during this hosptial stay alongwith wishes of family/daughter. PT consult recommends STR.
[2016-09-18] MEDS ORDERED: COUMADIN3 M1 PO (07:12)
[2016-09-18 07:42] LABS: ABSOLUTE BASOPHIL COUNT 0 /CUMM (0.0-0.2); ABSOLUTE EOSINOPHIL COUNT 0.1 /CUMM (0.0-0.7); ABSOLUTE LYMPH COUNT 0.9 /CUMM (1.2-3.4); ABSOLUTE MONOCYTE COUNT 0.8 /CUMM (0.10-0.60); BASOPHIL % 0.2 % (0.0-2.0); EOSINOPHIL % 1.5 % (0-5); GRANULOCYTE % 76.5 % (42.2-75.2); HEMATOCRIT 25.4 % (37-47); MEAN CORPUSCULAR HGB CONC 33.3 G/DL (33.0-37.0); MEAN CORPUSCULAR VOLUME 90.1 FL (81.0-99.0); MEAN PLATELET VOLUME 8.4 FL (7.4-10.4); PLATELET COUNT 214 /CUMM (130-400); RBC DISTRIBUTION WIDTH 15.3 % (11.5-14.5); RED BLOOD CELL CT 2.81 /CUMM (4.20-5.40); WHITE BLOOD CELL COUNT 7.8 /CUMM (4.8-10.8)
[2016-09-18 08:16] LABS: PT 13.1 SEC (9.4-12.5)
[2016-09-18] MEDS ORDERED: CHILDREN'S ASPI81 M1 PO (11:17)
[2016-09-18 11:24] VITALS: BP 106/60
== END 2016-09-18 12:04 | DRG 378 ==
LOC: ERH 08:01 → CRI 11:41 → ERHI 11:41 → 2NB 11:41 → ENRESERV 13:44 → CRI 14:55 → 2NB 09-16 10:07 → ENPENDDIS 09-18 10:26 → 2NB 09-18 12:04
PROVIDERS: Emergency Medicine; Internal Medicine; Radiology Diagnostic Radiology; Student in an Organized Health Care Education/Training Program; ADMIT Internal Medicine
DX: K57.31 Diverticulosis of large intestine without perforation or abscess with bleeding (principal); D62 Acute posthemorrhagic anemia; I48.0 Paroxysmal atrial fibrillation; Z79.01 Long term (current) use of anticoagulants; Z86.73 Personal history of transient ischemic attack (TIA), and cerebral infarction without residual deficits; Z85.72 Personal history of non-Hodgkin lymphomas; Z85.038 Personal history of other malignant neoplasm of large intestine
CPT/HCPCS: 2NBP; CCU; 36415; 82436; 87086; 93005; 93010; 96360; 97110-GO; 97116-GO; 97161-GP; 97530-GO; 99291; J7040; J7508